=== PATIENT | female | born 1960 | race Caucasian/White ===

== ENCOUNTER 2021-04-24 09:24 | Outpatient (REF) | payer MEDICAID, SELFPAY ==
--- NOTE | ~2021-04-24 | XR_ITS ---
EXAMINATION: XR ANKLE, LEFT CLINICAL INFORMATION: Pain left ankle and left foot. COMPARISON: None TECHNIQUE: AP, lateral, and mortise views of the left ankle. FINDINGS: The ankle mortise and subtalar joints are normal. There is no visible fracture, dislocation or subluxation seen. A small calcaneal heel enthesophyte. The soft tissues are normal. XR/XR ankle LT min 3V IMPRESSION: Small calcaneal heel enthesophytes. No visible acute fracture, dislocation or subluxation seen.
== END 2021-04-24 09:25 | disposition home or self-care (01) ==
LOC: HO.XRAY 09:24
PROVIDERS: PCP Pediatrics; Visit Provider Family Medicine
DX: M25.572 Pain in left ankle and joints of left foot (principal)
CPT/HCPCS: 73610

== ENCOUNTER → 2021-05-12 10:09 | Outpatient (BNVA) | payer MEDICAID, SELFPAY | PROVIDERS: Visit Provider Physician Assistant | DX: M76.62 Achilles tendinitis, left leg (principal); M72.2 Plantar fascial fibromatosis | CPT/HCPCS: 99202 ==

== ENCOUNTER 2021-06-23 07:21 | Outpatient (REF) | payer MEDICAID, SELFPAY | END 2021-06-23 07:22 | disposition home or self-care (01) | LOC: HO.HOSX 07:21 | PROVIDERS: Visit Provider Physician Assistant | DX: Z13.89 Encounter for screening for other disorder (principal) ==

== ENCOUNTER 2021-06-24 13:00 | Outpatient (RCR) | payer MEDICAID, SELFPAY ==
--- NOTE | 2021-05-22 18:42 | MHC.PT.EP ---
[facility] [place] [facility] [place] [facility] [place] [facility] [address] [phone] F: [phone] F: [phone] F: [phone] F: [phone] Physical Therapy Plan of Care Date of Evaluation: Date of Surgery: n/a Diagnosis: Left Leg Achilles Tendinitis Assessment: PT is a 60/yo F referred to PT for eval/treat of her L leg Achilles tendinitis. S/S are consistent w/ ankle/foot dysfunction resulting in decreased tolerance and ability to perform WB activities such as standing, negotiating stairs, squatting, ambulating for duration, decreased tolerance to perform light household activities as well as doing ADLs such as putting shoes and socks and transferring in/out of the car. Functional limitation mentioned above are secondary to decreased ROM, hyperalgesia across Achilles tendon and along medial aspect/deep of GS heads, TTP of achilis tendon/planter fascia, and pain. pt is deemed appropriate to receive skilled PT to address her physical impairments to improve her functional abilities. Frequency and Duration: The patient will be seen 2x/wk for 5 wk Short Term Goals: initiate HEP w/ evidence of compliance Non pitting edema of distal AT absent. pt will report feeling baseline pain of <3/10 pain; initial 5/10 pt will be ambulate 2 blocks w/ little bit of difficulty Sewer Tapper Goals: pt will be able to ambulate 1 mile w/ little bit of difficulty; initial quite a bit of difficulty Pt will be able to negotiate flight of stairs w/ little bit of difficulty; initial quite a bit of difficulty pt will improve LEFI MDC/MCID by at least 2 increment; initial 20/80. Treatment Plan: Modalities to reduce pain, spasms and effusion. Manual therapy to restore motion and function. Therapeutic exercise to improve strength and flexibility. Neuromuscular re-education for posture and balance. Therapeutic activities to return to functional activities of daily living. Electronically signed by: Lee Olmos PT Please sign and return to therapist. Thank you for your referral.
--- NOTE | 2021-10-06 09:39 | MHC.PT.DC ---
[facility] [place] [facility] [place] [facility] [place] Office [address] 140 [facility] [phone] F: [phone] F: [phone] F: [phone] F: [phone] Physical Therapy Discharge Report Diagnosis: Left Leg Achilles Tendinitis Date of Surgery: n/a Date of Evaluation: 05/22/21 Date of Discharge: 07/21/21 Treatments to Date: 6 Cancellations to Date: No Shows to Date: Discharge Status: Improved Function Independent with HEP Patient Elected to Stop Discharge Summary: Pt remained painfree, but had increased L/S pain after exs. Pt progressed with exs with no difficulty. Balance was a challenge Electronically signed by: Lee Olmos PT. Please sign and return to therapist. Thank you for your referral.
== END 2021-10-06 09:39 | disposition home or self-care (01) ==
LOC: HO.PTCHIC 13:00
PROVIDERS: PCP Pediatrics; Visit Provider Physician Assistant
DX: M76.62 Achilles tendinitis, left leg (principal)
CPT/HCPCS: 97035; 97110; 97112; 97140; 97150; 97161

== ENCOUNTER 2021-10-22 10:35 | Outpatient (REF) | payer MEDICAID, SELFPAY ==
--- NOTE | ~2021-10-22 | MM_ITS ---
EXAMINATION: BONE DENSITOMETRY CLINICAL INDICATION: Osteoporosis. COMPARISON: Previous BD dated 03/09/2019 and baseline BD dated 02/23/2013. TECHNIQUE: Using a Nibu DXA System (software version: 13.1) manufactured by [employer], dual-energy x-ray absorptiometry was performed of the lumbar spine and left hip. The images are of good technical quality. Summary results are attached. FINDINGS: AP SPINE L1-L4: Current: BMD 0.784 g/cm2, Z-score -1.2, T-score -3.3, osteoporosis, 1.8% decrease from previous, 7.7% decrease from baseline (<5% change is not significant). Prior: BMD 0.798 g/cm2. Baseline: BMD 0.849 g/cm2. LEFT FEMUR, NECK: Current: BMD 0.668 g/cm2, Z-score -0.8, T-score -2.7, osteoporosis. Prior: BMD 0.745 g/cm2. Baseline: BMD 0.715 g/cm2. LEFT FEMUR, TOTAL: Current: BMD 0.774 g/cm2, Z-score -0.3, T-score -1.9, osteopenia, 7.9% decrease from previous, 6.5% decrease from baseline (<5% change is not significant). Prior: BMD 0.840 g/cm2. Baseline: BMD 0.828 g/cm2. IDENTIFIED RISK FACTORS: Osteoporosis, tobacco use (current smoker), height loss, history of fracture (adult), menopause. HISTORY OF FRACTURE: Elbow. MEDICATIONS: Vitamin D, bisphosphonate. MM/XR DEXA axial skeleton IMPRESSION: 1. DIAGNOSIS: Osteoporosis based on the lowest T-score value of -3.3 in the lumbar spine applying World Health Organization criteria. 2. 10-YEAR FRACTURE RISK PREDICTION, FRAX: According to the guidelines, FRAX calculation should only be performed on patients in the osteopenia bone density category. 3. Treatment Recommendations: NOF guidelines recommend consideration for treatment in postmenopausal women and men age 50 and older presenting with the following: -A hip or vertebral (clinical or morphometric) fracture. -T-score less than or equal to -2.5 at the femoral neck or spine after appropriate evaluation to exclude secondary causes. -Low bone mass at the hip or spine and a 10-year fracture probability by FRAX of greater than or equal to 3% for hip fracture or greater than or equal to 20% for major osteoporotic fracture based on the [place] adapted WHO algorithm. 4. Other Recommendations: All treatment decisions require clinical judgment and consideration of individual patient factors, including patient preferences, comorbidities, previous drug use, risk factors not captured in the FRAX model (e.g. frailty, falls, vitamin D deficiency, increased bone turnover, interval significant decline in bone density) and possible under or overestimation of fracture risk by FRAX. Additional medical evaluation for secondary cause of low bone mineral density may be appropriate. FUTURE SCAN RECOMMENDATION: People with diagnosed cases of osteoporosis or at high risk for fracture should have regular bone mineral density tests. For patients eligible for Medicare, routine testing is allowed once every 2 years. The testing frequency can be increased to one year for patients who have rapidly progressing disease, those who are receiving or discontinuing medical therapy to restore bone mass, or have additional risk factors.
--- NOTE | ~2021-10-22 | MM_ITS ---
EXAMINATION: MM SCREENING DIGITAL BREAST TOMOSYNTHESIS, BILATERAL CLINICAL INFORMATION: Screening. Asymptomatic. The lifetime risk of breast cancer based on the Tyrer-Cuzick Model is 4%. COMPARISON: Mammography: 03/09/2019, 10/29/2015, 02/23/2013 TECHNIQUE: Digital breast tomosynthesis is performed in both the craniocaudal and mediolateral oblique views along with computer-aided detection (CAD). Synthesized 2D images are generated from the tomosynthesis. FINDINGS: There are scattered areas of fibroglandular density (ACR BI-RADS breast composition Category b). Breast tissue composition borders on heterogeneously dense. There is fine fibronodular parenchymal pattern with asymmetry anterior medial right breast similar to prior studies. There is no developing density or architectural abnormality. The axilla and skin contours are unremarkable. No significant changes. MM/MM tomosynthesis screening BI IMPRESSION: No significant changes from prior exams. ASSESSMENT: BI-RADS 2: Benign RECOMMENDATION: Routine annual mammography screening. This patient's information was entered into a reminder system with a target due date for their next mammogram.
== END 2021-10-22 10:36 | disposition home or self-care (01) ==
LOC: HO.MAMMO 10:35
PROVIDERS: Visit Provider Pediatrics
DX: Z12.31 Encounter for screening mammogram for malignant neoplasm of breast (principal); Z13.820 Encounter for screening for osteoporosis; M81.0 Age-related osteoporosis without current pathological fracture; Z78.0 Asymptomatic menopausal state; Z79.899 Other long term (current) drug therapy; F17.200 Nicotine dependence, unspecified, uncomplicated
CPT/HCPCS: 77063; 77067; 77080

== ENCOUNTER 2023-05-20 15:15 | Outpatient (REF) | payer MEDICAID, SELFPAY ==
[2023-05-20 17:50] LABS: MANUAL DIFF FLAG NO
[2023-05-20 18:10] LABS: Basophils Absolute Auto 0.1 X10*3/uL (0.0-0.2); Basophils Percent Auto 0.9 % (0-2); Eosinophils Absolute Auto 0.2 X10*3/uL (0.0-0.4); Eosinophils Percent Auto 2.6 % (0-4); Hematocrit 42.4 % (37.0-47.0); Hemoglobin 14.1 g/dl (12.0-16.0); Imm Gran Abs Auto 0.02 X10*3/uL (0.00-0.03); Imm Gran Pct Auto 0.3 % (0.0-0.4); Lymphocytes Absolute Auto 2.6 X10*3/uL (1.2-4.9); Lymphocytes Percent Auto 37.1 % (20-40); Mean Corpuscular HGB Conc 33.3 g/dl (31.0-35.0); Mean Corpuscular Hemoglobin 32.6 pg (27.0-33.0); Mean Corpuscular Volume 97.9 fL (80.0-98.0); Mean Platelet Volume 8.9 fL (9.4-12.3); Monocytes Absolute Auto 0.5 X10*3/uL (0.1-1.2); Monocytes Percent Auto 7.1 % (2-11); Neutrophils Absolute Auto 3.6 x10*3/uL (2.0-8.3); Platelet Count 406 X10*3/uL (160-400); Red Blood Count 4.33 X10*6/uL (4.20-5.50); Red Cell Distribution Width 12.4 % (11.0-16.0)
[2023-05-20 18:33] LABS: Rheumatoid Factor 41.2 IU/mL (<15.0)
[2023-05-20 18:34] LABS: Alanine Aminotransferase 17 U/L (0-31); Albumin Level 4.1 g/dL (3.5-5.0); Alkaline Phosphatase 99 U/L (39-117); Anion Gap 15 (12-20); Aspartate Amino Transferase 19 U/L (5-31); Bilirubin Direct 0.2 mg/dL (0.0-0.5); Bilirubin Total 0.5 mg/dL (0.0-1.0); Blood Urea Nitrogen 7 mg/dL (9-16); Calcium 9.8 mg/dL (8.4-10.2); Carbon Dioxide 22 mmol/L (22-29); Chloride 105 mmol/L (96-108); Cholesterol 193 mg/dL (<200); Estimated Glomerular Filt Rate > 60; Glucose Fasting 82 mg/dL (60-99); HDL Cholesterol 54 mg/dL (>40); LDL Cholesterol Calculated 124 mg/dL (<100); Potassium 3.8 mmol/L (3.3-5.1); Sodium 138 mmol/L (135-145); Triglycerides 77 mg/dL (<150)
[2023-05-20 18:41] LABS: Erythrocyte Sedimentation Rate 5 MM/HR (0-20)
[2023-05-20 18:44] LABS: TSH reflex Free T4 1.07 uIU/mL (0.32-4.0); Vitamin D 25-OH Total 83.9 ng/mL (>30)
[2023-05-20 18:52] LABS: Vitamin B12 296 pg/mL (200-900)
[2023-05-23 07:44] LABS: TS Negative Control Passed; TS Panel A 2; TS Panel B 3; TS Positive Control Passed; TSpotTB Negative (Negative)
== END 2023-05-20 15:16 | disposition home or self-care (01) ==
LOC: HO.CHCLDS 15:15
PROVIDERS: Visit Provider Pediatrics
DX: Z00.00 Encounter for general adult medical examination without abnormal findings (principal)
CPT/HCPCS: 36415; 80048; 80061; 80076; 82306; 82607; 84443; 85025; 85652; 86140; 86431; 86481

== ENCOUNTER 2023-09-04 08:08 | Inpatient (IN) | payer MEDICAID, SELFPAY ==
[2023-09-04] VITALS (12 sets, daily range): BP systolic 110–134; BP diastolic 53–70; PULSE 89–113; RESP 20–30; TEMP 36.4–38.2; O2SAT 2–93; BMI 18.0; BMI 18.8
--- NOTE | ~2023-09-04 | XR_ITS ---
EXAMINATION: XR CHEST CLINICAL INFORMATION: Shortness of breath. Cough. COMPARISON: Chest x-ray September 02, 2018 TECHNIQUE: Frontal view of the chest was obtained. FINDINGS: Cardiac silhouette is normal in size. The lungs are hyperinflated. Mild diffuse coarsening of the interstitial markings, a chronic finding. There is consolidative airspace disease of the left lung base with mild patchy airspace disease bilaterally. No pleural effusion. No pneumothorax. XR/XR chest 1V IMPRESSION: Patchy bilateral airspace disease, most prominent within the left lower lobe. Findings are most suggestive of an infectious process. Follow-up imaging suggested status post treatment to ensure resolution.
--- NOTE | 2023-09-04 08:31 | ECG_ITS ---
Test Reason : FALL Blood Pressure : / mmHG Vent. Rate : 101 BPM Atrial Rate : 101 BPM P-R Int : 122 ms QRS Dur : 072 ms QT Int : 362 ms P-R-T Axes : 081 069 077 degrees QTc Int : 469 ms Sinus tachycardia Otherwise normal ECG No previous ECGs available Referred By: Verena Rainey Electronically Signed By:Chris Butterfield
--- NOTE | 2023-09-04 08:35 | PC.NURSE ---
Pt is a&ox4 coming in with sob x1 week. Reports getting worse in the last few days. Cp upon palpation. Pt has been coughing with chills and fevers on and off. increase wob noted. crackles at bases.
--- NOTE | 2023-09-04 08:38 | ED_ITS ---
HPI - SOB/Dyspnea General Chief Complaint: Dyspnea Stated Complaint: difficultly breathing, weakness Time Seen by Provider: 09/04/23 08:22 Source: patient and RN notes reviewed Mode of arrival: ambulatory Limitations: no limitations History of Present Illness HPI Narrative: This is a 63-year-old female, with a history of COPD, presenting to the emergency department with complaints of shortness of breath x1 week. Patient states that she was exposed to her son who is coughing last week, the next day she developed some shortness of breath, and a cough. She states that she has had mildly sore throat, productive cough with green-colored sputum, and right- sided chest pain. She states that the chest pain worsens with coughing. She also endorses shortness of breath. She has been using her at home nebulizers which has provided her with minimal relief. She also reports fevers, temperature at 103?, chills, body aches. She also endorses some intermittent nausea, no abdominal pain, diarrhea. MD elicited complaint: shortness of breath, cough and chest pain Pertinent past history: COPD Onset (ago): day(s) Context: recent illness Severity: moderate Exacerbating factors: nothing Relieving factors: nothing Associated symptoms: chest pain, fever, cough and sputum production Treatment prior to arrival: none Related Data Home Medications Medication Instructions Recorded Confirmed budesonide-formoterol HFA 160 2 puff inhalation BID 05/12/21 09/04/23 mcg-4.5 mcg/actuation aerosol inhaler (Symbicort) ibuprofen 400 mg tablet 400 mg PO Q8H PRN Pain 05/12/21 09/04/23 venlafaxine 37.5 mg 37.5 mg PO DAILY 05/12/21 09/04/23 capsule,extended release 24 hr albuterol sulfate 2.5 mg/3 mL 2.5 mg inhalation Q6H PRN wheezing 09/04/23 09/04/23 (0.083 %) solution for nebulization albuterol sulfate 90 mcg/actuation 1 puff inhalation Q4H PRN 09/04/23 09/04/23 aerosol inhaler (Ventolin HFA) Shortness Of Breath Or Wheezing alendronate 10 mg tablet 10 mg PO DAILY 09/04/23 09/04/23 benzonatate 100 mg capsule 100 mg PO TID PRN cough 09/04/23 09/04/23 cetirizine 10 mg tablet 10 mg DAILY 09/04/23 09/04/23 cholecalciferol (vitamin D3) 50 50 mcg BID 09/04/23 09/04/23 mcg (2,000 unit) capsule codeine 10 mg-guaifenesin 100 mg/5 5 ml PO Q6H PRN cough 09/04/23 09/04/23 mL oral liquid oseltamivir 75 mg capsule 75 mg PO BID 09/04/23 09/04/23 Allergies Allergy/AdvReac Type Severity Reaction Status Date / Time Seasonal Allergies Allergy Intermediate sneeze, Verified 05/12/21 10:24 coughing Review of Systems 2 Review of Systems: Yes all other systems are reviewed and are negative Constitutional: Constitutional: Reports as per [facility] Past Medical History Attestation statement: The following information was validated with the patient. 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 Physical Exam 2 Vital Signs: Vital Signs: Last Vital Signs Temp 97.5 F 09/04/23 14:44 Pulse 96 09/04/23 15:50 Resp 24 H 09/04/23 15:43 BP 119/63 09/04/23 14:44 Pulse Ox 93 09/04/23 15:50 O2 Del Method Oxymask 09/04/23 14:44 O2 Flow Rate 1.5 09/04/23 14:44 BMI result Body Mass Index 18.0 Const: General: cooperative, comfortable and no acute distress O rientation/consciousness: patient oriented x3 Limitations: no limitations HEENT: Head: Yes normal to inspection, Yes normocephalic and Yes atraumatic Ears: hearing grossly normal bilaterally General nose exam: Normal external nose present Face and sinus: Yes normal facial exam Mouth: Normal oral and palatal mucosa present, oropharynx normal and moist mucous membranes Throat: Yes posterior oropharynx normal Eyes: General: appearance normal, both eyes and all related structures E yelids: Yes eyelids normal Conjunctivae: conjunctivae normal Sclerae: s clerae normal Pupils: Equal, round and reactive pupils present EOM: EOMs intact bilaterally Neck: Neck: Yes normal visual inspection, Yes full ROM and Yes no lymphadenopathy Lymphatic: no lymphadenopathy noted Chest: Chest palpation & inspection: normal inspection of the chest Resp: Other: Lungs are diminished at bilateral lung bases, with crackles heard Speaking in 4-5 word sentences. Auscultation: wheezes Cardio: Rate: regular rate Rhythm: regular rhythm Heart sounds: S1 normal heart sound present and S2 normal heart sound present GI: Inspection: Yes normal to inspection Skin: General skin exam: no rashes or lesions noted Trauma: no lacerations or abrasions Wounds: no wounds Neuro: General: patient oriented x3 and moves all extremities Cranial nerves: Yes Equal, round and reactive pupils present Extrem: General: Yes normal to inspection Right upper extremity: normal to inspection Left upper extremity: normal to inspection Right lower extremity: normal to inspection Left lower extremity: normal to inspection Course Reevaluation(s) Reevaluation #1: Call from laboratory revealing patient does have 31% bands. Given patient has leukocytosis with bandemia, will administer IV fluid, and IV antibiotics. Chest x-ray, viral swabs, troponin, BMP still pending at this time. Time: 09:11 Reevaluation #2: Received a phone call from laboratory, patient with 31% bands. Patient does have leukocytosis at 11.4, lactic at 1.5. Discussed case with my attending physician, Dr. Richardson. IV fluids, Zithromax 500 mg IV, and ceftriaxone 1 g IV ordered. Chest x-ray still pending however clinical picture consistent with community-acquired pneumonia. Patient febrile at 100.8, Tylenol 1 g ordered. Time: 09:19 Reevaluation #3: Chest x-ray returns revealing patchy bilateral airspace disease most prominent within the left lower lobe. She is currently receiving IV fluids, and double coverage antibiotics. Patient tested positive for influenza A. Urine does not appear to be grossly infected. Given bandemia with evidence of pneumonia on chest x-ray, will admit to the hospitalist for further management Time: 10:33 Additional Reevaluation(s): 1035 - patient re-evaluated, increased crackles heard at bilateral lung bases, left greater than right. Given crackles, IV fluids were pause. E.d. prong protocol was initiated for respiratory therapy management. 11:48 - Pt feeling slightly improved after updraft. Will initiate transfer of care to hospitalist for further intervention. Spoke to Dr. Pacheco who accepts transfer of care. Medications Administered Generic Name Dose Route Start Last Admin Trade Name Freq PRN Reason Stop Dose Admin Albuterol/Ipratropium 3 ml 09/04/23 16:00 09/04/23 15:40 Albuterol/Iprat 2.5/0.5mg 3 Ml Ampul.Neb INHALE 3 ml RQ4H RUBY Administration Guaifenesin/Codeine Phosphate 10 ml 09/04/23 13:00 09/04/23 13:29 Guaifen/Codeine Sf 200/20/10ml 10 Ml Liquid PO 10 ml Q4H RUBY Administration Loratadine 10 mg 09/04/23 13:00 09/04/23 13:29 Loratadine 10 Mg Tablet PO 10 mg DAILY RUBY Administration Omeprazole 20 mg 09/04/23 16:30 09/04/23 15:57 Omeprazole 20 Mg Capsule. PO 20 mg BID@0630,1630 RUYB Administration Sodium Chloride 3 ml 09/04/23 16:00 09/04/23 15:57 0.9 % Sodium Chloride Flush 3 Ml Syringe IVFLUSH 3 ml QSHIFT RUBY Administration Discontinued Medications Generic Name Dose Route Start Last Admin Trade Name Freq PRN Reason Stop Dose Admin Acetaminophen 975 mg 09/04/23 10:03 09/04/23 10:18 Acetaminophen 325 Mg Tablet PO 09/04/23 10:04 975 mg ONCE ONE Administration Albuterol Sulfate 2.5 mg/ 0 mg 09/04/23 10:54 09/04/23 10:59 Albuterol/Ipratropium 3 ml INHALE 09/04/23 10:55 5 dose ONCE ONE Administration Azithromycin 500 mg/ Sodium 250 mls @ 125 mls/hr 09/04/23 09:17 09/04/23 12:38 Chloride IV 09/04/23 11:16 Infused ONCE ONE Infusion Ceftriaxone Sodium 1 gm/ 50 mls @ 100 mls/hr 09/04/23 09:17 09/04/23 10:18 Sodium Chloride IV 09/04/23 09:46 Infused ONCE ONE Infusion Sodium Chloride 1,000 mls @ 999 mls/hr 09/04/23 09:30 09/04/23 12:14 Ns IV 09/04/23 10:30 Infused .Q1H1M ONE Infusion Sodium Chloride 500 mls @ 500 mls/hr 09/04/23 10:32 09/04/23 10:46 Ns IV 09/04/23 11:31 Not Given .Q1H ONE Methylprednisolone Sodium Succinate 125 mg 09/04/23 10:39 09/04/23 10:56 Methylprednisolone Sod Succ 125 Mg/2 Ml Vial IVPUSH 09/04/23 10:40 125 mg ONCE ONE Administration Medical Decision Making Medical Decision Making MDM Narrative: This is a 63-year-old female presenting to the emergency department for evaluation of shortness of breath, productive cough with green-colored sputum x1 week. On arrival, patient tachycardic with a pulse of 105, respirations 30, oxygen saturation 92% on room air. Lungs are diminished at bilateral lung bases with coarse crackles heard. Plan: EKG, labs, chest x-ray, blood cultures, lactic acid Differential Diagnosis Differential Diagnoses: The differential diagnosis associated with the presentation includes Upper respiratory infection, pneumonia, COVID, COPD Admission/Observation Consideration of admission/observation: Escalation of care including admission/observation considered Escalation of care including admission observation was considered given shortness breath and chest pain Lab Data [facility] Lab Attestation statement: I reviewed the patient's lab results. See course, and MDM 09/04/23 08:39 09/04/23 08:39 Labs: Lab Results 09/04/23 09/04/23 09/04/23 Range/Units 08:39 08:58 09:56 WBC 11.4 H (4.8-10.8) X10*3/uL RBC 4.33 (4.20-5.50) X10*6/uL Hgb 13.9 (12.0-16.0) g/dl Hct 39.3 (37.0-47.0) % MCV 90.8 (80.0-98.0) fL MCH 32.1 (27.0-33.0) pg MCHC 35.4 H (31.0-35.0) g/dl RDW 12.6 (11.0-16.0) % Plt Count 287 D (160-400) X10*3/uL MPV 9.2 L (9.4-12.3) fL Immature Gran % (Auto) Cancelled Neut % (Auto) Cancelled Lymph % (Auto) Cancelled [place] % (Auto) Cancelled Eos % (Auto) Cancelled Baso % (Auto) Cancelled Lymph # (Auto) Cancelled [place] # (Auto) Cancelled Eos # (Auto) Cancelled Baso # (Auto) Cancelled Abs Immat Gran (auto) Cancelled Absolute Neuts (auto) Cancelled Absolute Nucleated RBC 0.000 (0.0-0.012) X10*3/uL Nucleated RBC % (auto) 0.0 (0.0-0.2) /100WBC Neutrophils % (Manual) 56 (45-73) % Band Neutrophils % 31 H (3-5) % Lymphocytes % (Manual) 9 L (20-40) % Atypical Lymphs % (Man) 1 (0-6) % Monocytes % (Manual) 3 (2-11) % Abs Neuts (Manual) 9.9 H (2.0-8.3) X10*3/uL Lymphocytes # (Manual) 1.0 L (1.2-4.9) X10*3/uL Atyp Lymphs # (Manual) 0.1 x10*3/uL Monocytes # (Manual) 0.3 (0.1-1.2) X10*3/uL Dohle Bodies PRESENT Platelet Estimate NORMAL (NORMAL) Plt Morphology Comment NORMAL RBC Morphology NORMAL Sodium 132 L (135-145) mmol/L Potassium 3.7 (3.3-5.1) mmol/L Chloride 91 L (96-108) mmol/L Carbon Dioxide 28 (22-29) mmol/L Anion Gap 17 (12-20) BUN 6 L (9-16) mg/dL Creatinine 0.64 (0.5-1.4) mg/dL Estim Creat Clear Calc 57.7 Estimated GFR > 60 Random Glucose 111 (60-115) mg/dL Lactic Acid 1.5 (0.5-2.0) mmol/L Calcium 9.2 D (8.4-10.2) mg/dL Magnesium 1.6 (1.6-2.6) mg/dL Total Bilirubin 0.7 (0.0-1.0) mg/dL Direct Bilirubin 0.4 (0.0-0.5) mg/dL AST 28 (5-31) U/L ALT 18 (0-31) U/L Alkaline Phosphatase 95 (39-117) U/L Troponin I High Sens 3.4 (<3.5-17.0) ng/L B-Natriuretic Peptide 35 (<100) pg/mL Total Protein 7.3 (6.5-8.0) g/dL Albumin 3.9 (3.5-5.0) g/dL Urine Color Dark Yellow Urine Appearance Clear Urine pH 6.5 (5.0-9.0) Ur Specific [place] 1.020 (1.005-1.025) Urine Protein 30 (1+) H (Neg-Trace) mg/dL Urine Glucose (UA) Negative (Negative) mg/dL Urine Ketones 15 (Negative) mg/dL Urine Blood Negative (Negative) Urine Nitrite Negative (Negative) Ur Leukocyte Esterase Trace H (Negative) Urine RBC 0-2 (0-2) /HPF Urine WBC 0-5 (0-5) /HPF Ur Squamous Epith Cells 3-5 (0-2) /HPF Urine Bacteria None Seen (None Seen) Hyaline Casts 0-2 (0-2) /LPF Influenza Type A (PCR) POSITIVE A (Negative) Influenza Type B (PCR) NEGATIVE (Negative) RSV RNA Qual (PCR) NEGATIVE (Negative) SARS-CoV-2 RNA (RT-PCR) NEGATIVE (Negative) Independent Interpretation I performed an independent interpretation of an: EKG Interpretation: Sinus tachycardia at a ventricular rate of 101 beats per minute, MN interval 122, QTC 469, no ST elevation or depression. Radiology Impression Discussion of test interpretation with radiology: I have reviewed the radiologist's reading. Radiologist Impression: EXAMINATION: XR CHEST CLINICAL INFORMATION: Shortness of breath. Cough. COMPARISON: Chest x-ray September 02, 2018 TECHNIQUE: Frontal view of the chest was obtained. FINDINGS: Cardiac silhouette is normal in size. The lungs are hyperinflated. Mild diffuse coarsening of the interstitial markings, a chronic finding. There is consolidative airspace disease of the left lung base with mild patchy airspace disease bilaterally. No pleural effusion. No pneumothorax. XR/XR chest 1V IMPRESSION: Patchy bilateral airspace disease, most prominent within the left lower lobe. Findings are most suggestive of an infectious process. Follow-up imaging suggested status post treatment to ensure resolution. Dictated By: Papi Womack MD External Record Review External record reviewed: Inpatient record, Office record, Outpatient record, Prior outpatient labs, Prior outpatient radiology, Primary care record and Outside ED record Critical Care Time Critical Care Time Critical Care Time: Yes Total Critical Care Time: 45 Attestation: I have personally provided critical care time exclusive of time spent on separately billable procedures. Time includes review of lab data, radiology results, discussion with consultants, and monitoring for potential decompensation. Intervention performed as documented. Discharge Plan Discharge Clinical Impression: Community acquired pneumonia, Influenza A, Bandemia Patient Disposition: Admitted As Inpatient Interventions: Admission Worksheet (ED) Last Done: 09/04/23 13:35 Discharge Date/Time: 09/04/23 14:33
[2023-09-04 08:47] LABS: Hematocrit 39.3 % (37.0-47.0); Hemoglobin 13.9 g/dl (12.0-16.0); Mean Corpuscular HGB Conc 35.4 g/dl (31.0-35.0); Mean Corpuscular Hemoglobin 32.1 pg (27.0-33.0); Mean Corpuscular Volume 90.8 fL (80.0-98.0); Mean Platelet Volume 9.2 fL (9.4-12.3); Platelet Count 287 X10*3/uL (160-400); Red Blood Count 4.33 X10*6/uL (4.20-5.50); Red Cell Distribution Width 12.6 % (11.0-16.0)
[2023-09-04 08:50] LABS: WBC ABN SCTR FOR CBC 1; White Blood Count 11.4 X10*3/uL (4.8-10.8)
[2023-09-04 09:05] LABS: Lactic Acid 1.5 mmol/L (0.5-2.0)
[2023-09-04 09:10] LABS: Alanine Aminotransferase 18 U/L (0-31); Albumin Level 3.9 g/dL (3.5-5.0); Alkaline Phosphatase 95 U/L (39-117); Anion Gap 17 (12-20); Aspartate Amino Transferase 28 U/L (5-31); Bilirubin Direct 0.4 mg/dL (0.0-0.5); Bilirubin Total 0.7 mg/dL (0.0-1.0); Blood Urea Nitrogen 6 mg/dL (9-16); Calcium 9.2 mg/dL (8.4-10.2); Carbon Dioxide 28 mmol/L (22-29); Chloride 91 mmol/L (96-108); Creatinine Clr Calc Pharmacy 57.7; Estimated Glomerular Filt Rate > 60; Glucose Random 111 mg/dL (60-115); Magnesium 1.6 mg/dL (1.6-2.6); Neutrophils Percent Manual 56 % (45-73); Potassium 3.7 mmol/L (3.3-5.1); Sodium 132 mmol/L (135-145); Total Protein 7.3 g/dL (6.5-8.0)
[2023-09-04 09:13] LABS: Atypical Lymph Absolute Manual 0.1 x10*3/uL; Atypical Lymphs Percent Manual 1 % (0-6); Band Neutrophils Percent 31 % (3-5); Lymphocytes Percent Manual 9 % (20-40); Monocytes Absolute Manual 0.3 X10*3/uL (0.1-1.2); Monocytes Percent Manual 3 % (2-11); Neutrophils Absolute Manual 9.9 X10*3/uL (2.0-8.3)
[2023-09-04 09:15] LABS: Dohle Bodies PRESENT; Platelet Estimate NORMAL (NORMAL); Platelet Morphology Comment NORMAL; RBC Morphology NORMAL
[2023-09-04 09:19] LABS: Troponin-I High Sensitivity 3.4 ng/L (<3.5-17.0)
[2023-09-04 09:24] LABS: Influenza A PCR POSITIVE (Negative); Influenza B PCR NEGATIVE (Negative); Resp Syncy Virus RNA Qual PCR NEGATIVE (Negative); SARS COV2 PCR INHOUSE NEGATIVE (Negative)
[2023-09-04 09:31] LABS: B Type Natriuretic Peptide 35 pg/mL (<100)
[2023-09-04] MEDS: cefTRIAXone sodium 1 GM in 0.9 % Sodium Chloride 50 ML IV (09:31)
[2023-09-04] MEDS: 0.9 % Sodium Chloride 1,000 ML 999 ML IV (09:33)
[2023-09-04] MEDS: Azithromycin 500 MG in 0.9 % Sodium Chloride 250 ML 125 MG IV (10:17)
[2023-09-04] MEDS: Acetaminophen 325 MG TABLET 975 MG PO (10:18)
[2023-09-04 10:21] LABS: Appearance Urine Clear; Color Urine Dark Yellow; Glucose Urine UA Negative (Negative); Leukocyte Esterase Urine Trace (Negative); Nitrite Urine Negative (Negative); PH 6.5 (5.0-9.0); UMIC TRIGGER UACC YES; Urine Blood Negative (Negative); Urine Ketones 15 mg/dL (Negative); Urine Protein 30 (1+) mg/dL (Neg-Trace)
[2023-09-04 10:26] LABS: Bacteria Urine None Seen (None Seen); Hyaline Casts Urine 0-2 /LPF (0-2); RBC Urine 0-2 /HPF (0-2); WBC Urine 0-5 /HPF (0-5)
--- NOTE | 2023-09-04 10:46 | PC.NURSE ---
Respiratory called for breathing treatment.
--- NOTE | 2023-09-04 10:46 | PC.NURSE ---
Fluids stopped at this time.
[2023-09-04] MEDS: methylPREDNISolone Sod Succ 125 MG/2 ML VIAL IVPUSH (10:56)
[2023-09-04] MEDS: Albuterol Sulfate 2.5 MG, Albuterol/Iprat 2.5/0.5MG 3 ML 3 ML INHALE (10:59)
--- NOTE | 2023-09-04 11:44 | PC.NURSE ---
Pt changed to Oxymask, difficulty tolerating nasal cannula in nares. Increased productive cough since updraft but decreased work of breathing. Continues to have SOB with any exertion. Crackles heard to B/L bases. Daughter at bedside.
--- NOTE | 2023-09-04 12:00 | PC.NURSE ---
Inpatient DR rivera at bedside assessing patient.
--- NOTE | 2023-09-04 12:52 | PM.IMHP ---
History of Present Illness Date of Service: 09/04/23 Attending physician on admission: Brigitte Pacheco Chief Complaint: sob ,cough ,myalgias 63 y/o F with history of COPD not on home oxygen, anxiety, osteopenia, 50 pack year somking hx ( active smoker) : came to hospital for sob ,productive cough with yellowish sputum ,pleurtic pain with coughing,fever ( almost 1week) which is not getting better -she went to [facility] but not stayed due to long wait.her son has flu too.She has been using her at home nebulizers which has provided her with minimal relief. She also reports fevers, temperature at 103?, chills, body aches. She also endorses some intermittent nausea. In ED she has tachycardia, tachypnea, fever(100.8*f) ,leucocytosis 11.2,sodium 132 ,postive for influenza A ,CXR-Patchy bilateral airspace disease, most prominent within the left lower lobe. ekg -nsr. recieved solumedrol,neb,azithro+ceftriaxone -minimal response . Review of Systems Review of Systems: Yes all other systems are reviewed and are negative [facility] Medical History Purulent drainage through ear tube Pertinent family history: son-has influenza. 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 Meds Allergies Allergy/AdvReac Type Severity Reaction Status Date / Time Seasonal Allergies Allergy Intermediate sneeze, Verified 05/12/21 10:24 coughing Active Medications: Current Medications Acetaminophen (Acetaminophen 325 Mg Tablet) 650 mg PO Q6H PRN PRN Reason: Pain, Mild (Pain Scale 1-3) Enoxaparin Sodium (Enoxaparin Sodium 40 Mg/0.4 Ml Syringe) 40 mg SUBCUT DAILY [facility] Guaifenesin/Codeine Phosphate (Guaifen/Codeine Sf 200/20/10ml 10 Ml Liquid) 10 ml PO Q4H [facility] Ceftriaxone Sodium 1 gm/ (Sodium Chloride) 50 mls @ 100 mls/hr IV DAILY [facility] Azithromycin 500 mg/ Sodium (Chloride) 250 mls @ 125 mls/hr IV DAILY [facility] Loratadine (Loratadine 10 Mg Tablet) 10 mg PO DAILY [facility] Methylprednisolone Sodium Succinate (Methylprednisolone Sod Succ 40 Mg/Ml Vial) 40 mg IVPUSH BID [facility] Omeprazole (Omeprazole 20 Mg Capsule.Dr) 20 mg PO BID@0630,1630 [facility] Oseltamivir Phosphate (Oseltamivir Phosphate 75 Mg Capsule) 75 mg PO BID [facility] Sodium Chloride (0.9 % Sodium Chloride Flush 3 Ml Syringe) 3 ml IVFLUSH QSHIFT [facility] Home Medications Medication Instructions Recorded Confirmed Last Taken Type budesonide-formoterol HFA 160 2 puff inhalation BID 05/12/21 Unknown History mcg-4.5 mcg/actuation aerosol inhaler (Symbicort) ibuprofen 400 mg tablet 400 mg PO Q8H 05/12/21 Unknown History venlafaxine 37.5 mg 37.5 mg PO DAILY 05/12/21 Unknown History capsule,extended release 24 hr albuterol sulfate 2.5 mg/3 mL 2.5 mg inhalation Q6H PRN wheezing 09/04/23 Unknown History (0.083 %) solution for nebulization albuterol sulfate 90 mcg/actuation 1 puff inhalation Q4H PRN 09/04/23 Unknown History aerosol inhaler (Ventolin HFA) Shortness Of Breath Or Wheezing alendronate 10 mg tablet 10 mg PO QAM 09/04/23 Unknown History benzonatate 100 mg capsule 100 mg PO TID PRN cough 09/04/23 Unknown History cetirizine 10 mg tablet 10 mg DAILY 09/04/23 Unknown History cholecalciferol (vitamin D3) 50 50 mcg BID 09/04/23 Unknown History mcg (2,000 unit) capsule codeine 10 mg-guaifenesin 100 mg/5 5 ml PO Q6H PRN cough 09/04/23 Unknown History mL oral liquid oseltamivir 75 mg capsule 75 mg PO BID 09/04/23 Unknown History Physical Exam Vital Signs and Narrative: Vital Signs: Last Vital Signs Temp 99.5 F 09/04/23 12:00 Pulse 110 H 09/04/23 12:00 Resp 24 H 09/04/23 12:00 BP 134/53 L 09/04/23 12:00 Pulse Ox 92 09/04/23 12:00 O2 Del Method Simple Mask 09/04/23 12:00 O2 Flow Rate 2 09/04/23 12:00 BMI result Body Mass Index 18.0 Appearance: Alert.? Oriented X3.?sob with minimun excersion ,talking in small sentences. Eyes: Pupils equal, round and reactive to light.? Sclera nonicteric.? ENT: Pharynx normal.? Moist mucous membranes. cvs: rrr, [id number] , no murmur res: air entry diminshed at bases ,few faint wheezing b/l. abd: no rebound or guarding ,nt, bs present. ext pulses present , no cyanosis . neuro: axo3 , nonfocal. Results Labs 09/04/23 08:39 09/04/23 08:39 Labs: Laboratory Results - last 24 hr 09/04/23 09/04/23 09/04/23 08:39 08:58 09:56 MCV 90.8 MCH 32.1 MCHC 35.4 H RDW 12.6 Plt Count 287 D MPV 9.2 L Immature Gran % (Auto) Cancelled Neut % (Auto) Cancelled Lymph % (Auto) Cancelled [place] % (Auto) Cancelled Eos % (Auto) Cancelled Baso % (Auto) Cancelled Lymph # (Auto) Cancelled [place] # (Auto) Cancelled Eos # (Auto) Cancelled Baso # (Auto) Cancelled Abs Immat Gran (auto) Cancelled Absolute Neuts (auto) Cancelled Absolute Nucleated RBC 0.000 Nucleated RBC % (auto) 0.0 Neutrophils % (Manual) 56 Band Neutrophils % 31 H Lymphocytes % (Manual) 9 L Atypical Lymphs % (Man) 1 Monocytes % (Manual) 3 Abs Neuts (Manual) 9.9 H Lymphocytes # (Manual) 1.0 L Atyp Lymphs # (Manual) 0.1 Monocytes # (Manual) 0.3 Dohle Bodies PRESENT Platelet Estimate NORMAL Plt Morphology Comment NORMAL RBC Morphology NORMAL Anion Gap 17 Estim Creat Clear Calc 57.7 Estimated GFR > 60 Random Glucose 111 Lactic Acid 1.5 Calcium 9.2 D Magnesium 1.6 Total Bilirubin 0.7 Direct Bilirubin 0.4 AST 28 ALT 18 Alkaline Phosphatase 95 B-Natriuretic Peptide 35 Total Protein 7.3 Albumin 3.9 Urine Color Dark Yellow Urine Appearance Clear Urine pH 6.5 Ur Specific [place] 1.020 Urine Protein 30 (1+) H Urine Glucose (UA) Negative Urine Ketones 15 Urine Blood Negative Urine Nitrite Negative Ur Leukocyte Esterase Trace H Urine RBC 0-2 Urine WBC 0-5 Ur Squamous Epith Cells 3-5 Urine Bacteria None Seen Hyaline Casts 0-2 Influenza Type A (PCR) POSITIVE A Influenza Type B (PCR) NEGATIVE RSV RNA Qual (PCR) NEGATIVE SARS-CoV-2 RNA (RT-PCR) NEGATIVE Imaging Radiologist's Impressions: Impressions Chest X-Ray 09/04/23 08:30 IMPRESSION: Patchy bilateral airspace disease, most prominent within the left lower lobe. Findings are most suggestive of an infectious process. Follow-up imaging suggested status post treatment to ensure resolution. Assessment and Plan (1) Bandemia: Status: Acute (2) Influenza A: Status: Acute (3) Community acquired pneumonia: Status: Acute Plan 63 y/o F with history of COPD not on home oxygen, anxiety, osteopenia, 50 pack year somking hx ( active smoker)- came with pneumonia ,inflenza A. sepsis sec to pneumonia ,alsoinflenza A, also has mild COPD exacerbation. Tachycardia tachypnea, bandemia Lactic acid normal, blood cultures sent Continue nebs, steroids, IV antibiotics ceftriaxone and azithromycin(09/03/23) ,cough syrup,tamiflu. active smoker: added nicotein patch. Anxiety- will start home meds once med reconcilliation completes. dvt prophylax: s/c lovenox. Ongoing hospitalization need: Due to sepsis and pneumonia in the setting of influenza a as well as COPD exacerbation patient will need IV antibiotics, nebs, steroids , respiratory monitoring for any decompensation. Patient will benefit from2 midnight stays. Above management discussed the patient and her daughter at the bedside in detail length they understand and in agreement with above plan, time spent 70 minute. Quality Stroke Does the patient have a stroke diagnosis?: No VTE Prior VTE?: No VTE Risk Level:: Medical - moderate - high VTE Device Contraindication: N/A - Device Ordered VTE Drug Contraindication: N/A - Med Ordered
[2023-09-04] MEDS: Loratadine 10 MG TABLET PO (13:29)
[2023-09-04] MEDS: guaiFEN/Codeine SF 200/20/10ML 10 ML LIQUID PO ×3 (13:29→20:56)
--- NOTE | 2023-09-04 13:31 | PHA.MEDREC ---
Pharmacy Consult ? Medication Reconciliation Pharmacy has completed the medication reconciliation.
[2023-09-04] MEDS: Albuterol/Iprat 2.5/0.5MG 3 ML AMPUL.NEB INHALE ×2 (15:40→19:48)
[2023-09-04] MEDS: Omeprazole 20 MG CAPSULE.DR PO (15:57)
[2023-09-04] MEDS: 0.9 % Sodium Chloride Flush 3 ML SYRINGE IVFLUSH ×2 (15:57→20:56)
[2023-09-04] MEDS: Oseltamivir Phosphate 75 MG CAPSULE PO (20:56)
[2023-09-04] MEDS: Acetaminophen 325 MG TABLET 650 MG PO (20:57)
[2023-09-04] MEDS: methylPREDNISolone Sod Succ 40 MG/ML VIAL IVPUSH (20:57)
[2023-09-05 03:53] VITALS: BP 111/63; PULSE 84; RESP 22; TEMP 36.2; O2SAT 90
[2023-09-05 05:38] LABS: Hematocrit 32.5 % (37.0-47.0); Hemoglobin 11.2 g/dl (12.0-16.0); Mean Corpuscular HGB Conc 34.5 g/dl (31.0-35.0); Mean Corpuscular Hemoglobin 31.6 pg (27.0-33.0); Mean Corpuscular Volume 91.8 fL (80.0-98.0); Mean Platelet Volume 9.5 fL (9.4-12.3); Platelet Count 279 X10*3/uL (160-400); Red Blood Count 3.54 X10*6/uL (4.20-5.50); Red Cell Distribution Width 12.8 % (11.0-16.0)
[2023-09-05] MEDS: Omeprazole 20 MG CAPSULE.DR PO ×2 (05:38→16:15)
[2023-09-05 05:58] LABS: Anion Gap 14 (12-20); Blood Urea Nitrogen 11 mg/dL (9-16); Calcium 8.4 mg/dL (8.4-10.2); Carbon Dioxide 28 mmol/L (22-29); Chloride 96 mmol/L (96-108); Creatinine Clr Calc Pharmacy 58.6; Estimated Glomerular Filt Rate > 60; Glucose Random 167 mg/dL (60-115); Potassium 3.8 mmol/L (3.3-5.1); Sodium 134 mmol/L (135-145)
[2023-09-05 06:16] LABS: Atypical Lymph Absolute Manual 0.4 x10*3/uL; Atypical Lymphs Percent Manual 4 % (0-6); Band Neutrophils Percent 9 % (3-5); Lymphocytes Absolute Manual 0.7 X10*3/uL (1.2-4.9); Lymphocytes Percent Manual 8 % (20-40); Monocytes Absolute Manual 0.2 X10*3/uL (0.1-1.2); Monocytes Percent Manual 2 % (2-11); Neutrophils Absolute Manual 7.7 X10*3/uL (2.0-8.3); Neutrophils Percent Manual 77 % (45-73); Platelet Estimate NORMAL (NORMAL); Platelet Morphology Comment NORMAL; RBC Morphology NORMAL
[2023-09-05 07:13] VITALS: BP 111/61; PULSE 80; RESP 18; TEMP 36.2; O2SAT 90
[2023-09-05] MEDS: Albuterol/Iprat 2.5/0.5MG 3 ML AMPUL.NEB INHALE ×2 (08:01→19:47)
[2023-09-05 08:03] VITALS: PULSE 83; RESP 18; O2SAT 88
[2023-09-05] MEDS: Loratadine 10 MG TABLET PO (08:09)
[2023-09-05] MEDS: methylPREDNISolone Sod Succ 40 MG/ML VIAL IVPUSH ×2 (08:09→20:08)
[2023-09-05] MEDS: Oseltamivir Phosphate 75 MG CAPSULE PO (08:09)
[2023-09-05] MEDS: guaiFEN/Codeine SF 200/20/10ML 10 ML LIQUID PO ×4 (08:11→20:07)
[2023-09-05] MEDS: vancomycin HCL 1,000 MG in 0.9 % Sodium Chloride 250 ML 270 MG IV (08:12)
[2023-09-05] MEDS: 0.9 % Sodium Chloride Flush 3 ML SYRINGE IVFLUSH ×3 (08:12→20:08)
--- NOTE | 2023-09-05 09:42 | PHA.PROG ---
Admission Date/Time: September 04, 2023 12:44 Indication: BACT Weight in k.7 kg Serum Creatinine - Last 168 Hours 09/04/23 09/05/23 08:39 05:26 Creatinine 0.64 0.66 Estimated CrCl and GFR - Last 168 Hours 09/04/23 09/05/23 08:39 05:26 Estim Creat Clear Calc 57.7 58.6 Estimated GFR > 60 > 60 Vancomycin Loading Dose: 1000 Current Vancomycin Dosing Regimen: [id number] Vancomycin Monitoring using AUC goal of 400 - 600 range with trough as surrogate marker: 576 Date and Time for next Vancomycin Level to be drawn: 09/06 @ 1999 Pharmacist Comments on Vancomycin Plan: Vancomycin dosing will take advantage of [employer] as a clinical decision support tool that uses Bayesian modeling to calculate individual patient's pharmacokinetic parameters and forecast the patient's drug concentration time course with the target goal AUC 24 range of 400 - 600 mg/L/hr.
--- NOTE | 2023-09-05 09:51 | HO.PM.IMPN ---
Subjective Subjective Date of Service: 09/05/23 Interval History: copd excerebation ,influenza A Review of Systems SOB seems similar ,has aggressive productive cough,no fever Physical Exam Vital Signs: Vital Signs: Last Vital Signs Temp 97.2 F 09/05/23 07:13 Pulse 83 09/05/23 08:03 Resp 18 09/05/23 08:03 BP 111/61 09/05/23 07:13 Pulse Ox 90 L 09/05/23 07:13 O2 Del Method Room Air 09/05/23 07:13 O2 Flow Rate 1.5 09/04/23 14:44 BMI result Body Mass Index 18.8 Appearance: Alert.? Oriented X3.?sob with minimun excersion ,talking in small sentences. cvs: rrr, [id number] . res: air entry diminshed at bases ,few faint wheezing b/l. abd: no rebound or guarding ,nt, bs present. ext pulses present , no cyanosis . neuro: axo3 , nonfocal. Objective Data Active Medications Acetaminophen (Acetaminophen 325 Mg Tablet) 650 mg PO Q6H PRN PRN Reason: Pain, Mild (Pain Scale 1-3) Last Admin: 09/04/23 20:57 Dose: 650 mg Documented By: FLAKITO Albuterol/Ipratropium (Albuterol/Iprat 2.5/0.5mg 3 Ml Ampul.Neb) 3 ml INHALE Q3H PRN PRN Reason: sob Albuterol/Ipratropium (Albuterol/Iprat 2.5/0.5mg 3 Ml Ampul.Neb) 3 ml INHALE RQ4H [facility] Last Admin: 09/05/23 08:01 Dose: 3 ml Documented By: GUERRERO Benzonatate (Benzonatate 100 Mg Capsule) 100 mg PO TID PRN PRN Reason: cough Enoxaparin Sodium (Enoxaparin Sodium 40 Mg/0.4 Ml Syringe) 40 mg SUBCUT DAILY [facility] Last Admin: 09/05/23 08:10 Dose: Not Given Documented By: NATALIE Non-Admin Reason: Patient Refused Fluticasone/Vilanterol (Fluticasone/Vilanterol 200/25 Blst.W.Dev) 1 puff INHALE RDAILY [facility] Guaifenesin/Codeine Phosphate (Guaifen/Codeine Sf 200/20/10ml 10 Ml Liquid) 10 ml PO Q4H [facility] Last Admin: 09/05/23 08:11 Dose: 10 ml Documented By: NATALIE Azithromycin 500 mg/ Sodium (Chloride) 250 mls @ 125 mls/hr IV DAILY [facility] Vancomycin HCl 750 mg/ Sodium (Chloride) 265 mls @ 265 mls/hr IV Q12H [facility] Loratadine (Loratadine 10 Mg Tablet) 10 mg PO DAILY [facility] Last Admin: 09/05/23 08:09 Dose: 10 mg Documented By: NATALIE Methylprednisolone Sodium Succinate (Methylprednisolone Sod Succ 40 Mg/Ml Vial) 40 mg IVPUSH BID [facility] Last Admin: 09/05/23 08:09 Dose: 40 mg Documented By: NATALIE Omeprazole (Omeprazole 20 Mg Capsule.Dr) 20 mg PO BID@0630,1630 [facility] Last Admin: 09/05/23 05:38 Dose: 20 mg Documented By: NANCY Oseltamivir Phosphate (Oseltamivir Phosphate 75 Mg Capsule) 75 mg PO BID [facility] Stop: 09/05/23 20:59 Last Admin: 09/05/23 08:09 Dose: 75 mg Documented By: NATALIE Pharmacy Consult (Consult Rx Vancomycin Dosing) 1 each MISCELLANE DAILY PRN PRN Reason: Consult order Sodium Chloride (0.9 % Sodium Chloride Flush 3 Ml Syringe) 3 ml IVFLUSH QSHIFT [facility] Last Admin: 09/05/23 08:12 Dose: 3 ml Documented By: NATALIE Venlafaxine HCl (Venlafaxine Hcl Er 37.5 Mg Cap.Er.24h) 37.5 mg PO DAILY [facility] Vitamin D (Cholecalciferol (Vitamin D3) 25 Mcg Tablet) 50 mcg PO BID [facility] Labs 09/05/23 05:26 09/05/23 05:26 Labs: Laboratory Results - last 24 hr 09/04/23 09/05/23 09:56 05:26 MCV 91.8 MCH 31.6 MCHC 34.5 RDW 12.8 Plt Count 279 MPV 9.5 Immature Gran % (Auto) Cancelled Neut % (Auto) Cancelled Lymph % (Auto) Cancelled [place] % (Auto) Cancelled Eos % (Auto) Cancelled Baso % (Auto) Cancelled Lymph # (Auto) Cancelled [place] # (Auto) Cancelled Eos # (Auto) Cancelled Baso # (Auto) Cancelled Abs Immat Gran (auto) Cancelled Absolute Neuts (auto) Cancelled Absolute Nucleated RBC 0.000 Nucleated RBC % (auto) 0.0 Neutrophils % (Manual) 77 H Band Neutrophils % 9 H Lymphocytes % (Manual) 8 L Atypical Lymphs % (Man) 4 Monocytes % (Manual) 2 Abs Neuts (Manual) 7.7 Lymphocytes # (Manual) 0.7 L Atyp Lymphs # (Manual) 0.4 Monocytes # (Manual) 0.2 Platelet Estimate NORMAL Plt Morphology Comment NORMAL RBC Morphology NORMAL Anion Gap 14 Estim Creat Clear Calc 58.6 Estimated GFR > 60 Random Glucose 167 H Calcium 8.4 D Urine Color Dark Yellow Urine Appearance Clear Urine pH 6.5 Ur Specific [place] 1.020 Urine Protein 30 (1+) H Urine Glucose (UA) Negative Urine Ketones 15 Urine Blood Negative Urine Nitrite Negative Ur Leukocyte Esterase Trace H Urine RBC 0-2 Urine WBC 0-5 Ur Squamous Epith Cells 3-5 Urine Bacteria None Seen Hyaline Casts 0-2 Microbiology Microbiology Results: Microbiology 09/04/23 01:00 Blood Culture - Preliminary Blood - Venous Prelim: GPC Gram Stain only 09/04/23 08:39 Blood Culture - Preliminary Blood - Venous Prelim: GPC Gram Stain only Assessment and Plan (1) Bandemia: Status: Acute (2) Influenza A: Status: Acute (3) Community acquired pneumonia: Status: Acute Plan 63 y/o F with history of COPD not on home oxygen, anxiety, osteopenia, 50 pack year somking hx ( active smoker)- came with pneumonia ,inflenza A. sepsis sec to pneumonia ,alsoinflenza A, also has mild COPD exacerbation. curb65 -points 2-3 Tachycardia tachypnea, bandemia Lactic acid normal, blood cultures sent Continue nebs, steroids, IV antibiotics ceftriaxone and azithromycin(09/03/23) ,cough syrup,tamiflu. active smoker: added nicotein patch. Anxiety- will start home meds once med reconcilliation completes. dvt prophylax: s/c lovenox. Ongoing hospitalization need: Due to sepsis and pneumonia in the setting of influenza a as well as COPD exacerbation patient will need IV antibiotics, nebs, steroids , respiratory monitoring for any decompensation. Quality Stroke Does the patient have a stroke diagnosis?: No VTE Prior VTE?: No VTE Risk Level:: Medical - moderate - high VTE Device Contraindication: N/A - Device Ordered VTE Drug Contraindication: N/A - Med Ordered
[2023-09-05] MEDS: Cholecalciferol (Vitamin D3) 25 MCG TABLET 50 MCG PO ×2 (10:13→20:08)
[2023-09-05] MEDS: Venlafaxine HCl ER 37.5 MG CAP.ER.24H PO (10:14)
[2023-09-05] MEDS: Azithromycin 500 MG in 0.9 % Sodium Chloride 250 ML 125 MG IV (10:14)
[2023-09-05] MEDS: Acetaminophen 325 MG TABLET 650 MG PO (12:36)
[2023-09-05 15:28] VITALS: BP 131/60; PULSE 84; RESP 18; TEMP 36.4; O2SAT 93
--- NOTE | 2023-09-05 16:20 | MHC.CM.PN ---
PT REPORTS SHE LIVES AT HOME WITH HER ADULT SON AND IS INDEPENDENT WITH CARE SHE DENIES USING ANY HOME SERVICES AND USES ONLY A NEBULIZER FOR DME PT SAYS SHE HAS A HCP ALREADY NAMING HER DAUGHTER HER AGENT, COPY REQUESTED PCP: ISABELLA JACOB DCP: HOME NO SERVICES VIA FAMILY TRANSPORT
[2023-09-05 19:48] VITALS: PULSE 88; RESP 18; O2SAT 93
[2023-09-05 19:57] VITALS: BP 134/67; PULSE 89; RESP 17; TEMP 36.2; O2SAT 95
[2023-09-05] MEDS: vancomycin HCL 750 MG in 0.9 % Sodium Chloride 250 ML 265 MG IV (20:08)
[2023-09-06] VITALS (9 sets, daily range): BP systolic 120–134; BP diastolic 61–72; PULSE 63–96; RESP 14–21; TEMP 36.1–36.4; O2SAT 90–95; BMI 18.8
[2023-09-06] MEDS: Albuterol/Iprat 2.5/0.5MG 3 ML AMPUL.NEB INHALE ×4 (04:12→20:00)
[2023-09-06] MEDS: Omeprazole 20 MG CAPSULE.DR PO ×2 (06:11→16:09)
[2023-09-06] MEDS: guaiFEN/Codeine SF 200/20/10ML 10 ML LIQUID PO ×5 (06:11→20:03)
[2023-09-06] MEDS: vancomycin HCL 750 MG in 0.9 % Sodium Chloride 250 ML 265 MG IV (08:04)
[2023-09-06] MEDS: 0.9 % Sodium Chloride Flush 3 ML SYRINGE IVFLUSH ×3 (08:04→20:04)
[2023-09-06] MEDS: Azithromycin 500 MG in 0.9 % Sodium Chloride 250 ML 125 MG IV (09:17)
[2023-09-06] MEDS: Loratadine 10 MG TABLET PO (09:17)
[2023-09-06] MEDS: Cholecalciferol (Vitamin D3) 25 MCG TABLET 50 MCG PO ×2 (09:17→20:03)
[2023-09-06] MEDS: Venlafaxine HCl ER 37.5 MG CAP.ER.24H PO (09:17)
[2023-09-06] MEDS: methylPREDNISolone Sod Succ 40 MG/ML VIAL IVPUSH ×2 (09:17→20:03)
[2023-09-06 09:32] LABS: Creatinine Clr Calc Pharmacy 70.3; Estimated Glomerular Filt Rate > 60
[2023-09-06] MEDS: polyethylene glycoL 3350 17 GM POWD.PACK PO (11:06)
[2023-09-06] MEDS: Docusate Sodium 100 MG CAPSULE PO (11:06)
--- NOTE | 2023-09-06 11:07 | MHC.CLN ---
NUTRITION DIET=REGULAR. TAKES ENSURE AT HOME. ADDING ENSURE MAX PROTEIN BID (VANILLA). PROVIDES 300 KCALS, 60 G PROTEIN. UNDERWEIGHT WITH BMI=18.8. REPORTS THAT WEIGHT HAS BEEN STABLE. CONTINUE REGULAR DIET WITH ENSURE MAX BID. PO 75-100%. FOLLOW FOR INTAKE.
[2023-09-06] MEDS: Fluticasone/Vilanterol 200/25 BLST.W.DEV 1 PUFF INHALE (11:38)
--- NOTE | 2023-09-06 11:45 | MHC.CM.PN ---
per rounds pt is still sob no anticapated dc date at this time plan remains home
--- NOTE | 2023-09-06 13:09 | P.PNIM_ITS ---
Subjective Subjective Date of Service: 09/06/23 Interval History: copd excerebation ,influenza A Review of Systems SOB seems similar ,has aggressive productive cough,no fever Physical Exam 2 Vital Signs: Vital Signs: Last Vital Signs Temp 96.9 F 09/06/23 08:00 Pulse 91 09/06/23 11:40 Resp 17 09/06/23 12:22 BP 133/72 09/06/23 08:00 Pulse Ox 90 L 09/06/23 12:22 O2 Del Method Room Air 09/06/23 12:22 O2 Flow Rate 1.5 09/04/23 14:44 BMI result Body Mass Index 18.8 Appearance: Alert.? Oriented X3.?sob with minimun excersion ,talking in small sentences. cvs: rrr, [id number] . res: air entry diminshed at bases ,few faint wheezing b/l. abd: no rebound or guarding ,nt, bs present. ext pulses present , no cyanosis . neuro: axo3 , nonfocal. Objective Data Active Medications Acetaminophen (Acetaminophen 325 Mg Tablet) 650 mg PO Q6H PRN PRN Reason: Pain, Mild (Pain Scale 1-3) Last Admin: 09/05/23 12:36 Dose: 650 mg Documented By: NATALIE Albuterol/Ipratropium (Albuterol/Iprat 2.5/0.5mg 3 Ml Ampul.Neb) 3 ml INHALE Q3H PRN PRN Reason: sob Albuterol/Ipratropium (Albuterol/Iprat 2.5/0.5mg 3 Ml Ampul.Neb) 3 ml INHALE RQ4H [facility] Last Admin: 09/06/23 11:38 Dose: 3 ml Documented By: ROSALIO Benzonatate (Benzonatate 100 Mg Capsule) 100 mg PO TID PRN PRN Reason: cough Enoxaparin Sodium (Enoxaparin Sodium 40 Mg/0.4 Ml Syringe) 40 mg SUBCUT DAILY [facility] Last Admin: 09/06/23 09:16 Dose: Not Given Documented By: AFSHAN Non-Admin Reason: Patient Refused Fluticasone/Vilanterol (Fluticasone/Vilanterol 200/25 Blst.W.Dev) 1 puff INHALE RDAILY [facility] Last Admin: 09/06/23 11:38 Dose: 1 puff Documented By: ROSALIO Guaifenesin/Codeine Phosphate (Guaifen/Codeine Sf 200/20/10ml 10 Ml Liquid) 10 ml PO Q4H [facility] Last Admin: 09/06/23 12:19 Dose: 10 ml Documented By: AFSHAN Azithromycin 500 mg/ Sodium (Chloride) 250 mls @ 125 mls/hr IV DAILY [facility] Last Infusion: 09/06/23 11:33 Dose: Infused Documented By: AFSHAN Vancomycin HCl 750 mg/ Sodium (Chloride) 265 mls @ 265 mls/hr IV Q12H [facility] Last Infusion: 09/06/23 09:27 Dose: Infused Documented By: AFSHAN Loratadine (Loratadine 10 Mg Tablet) 10 mg PO DAILY [facility] Last Admin: 09/06/23 09:17 Dose: 10 mg Documented By: AFSHAN Methylprednisolone Sodium Succinate (Methylprednisolone Sod Succ 40 Mg/Ml Vial) 40 mg IVPUSH BID [facility] Last Admin: 09/06/23 09:17 Dose: 40 mg Documented By: AFSHAN Omeprazole (Omeprazole 20 Mg Capsule.Dr) 20 mg PO BID@0630,1630 [facility] Last Admin: 09/06/23 06:11 Dose: 20 mg Documented By: MEHRDAD Ondansetron HCl (Ondansetron Hcl 4 Mg/2 Ml Vial) 4 mg IVPUSH Q6H PRN PRN Reason: Nausea and Vomiting Pharmacy Consult (Consult Rx Vancomycin Dosing) 1 each MISCELLANE DAILY PRN PRN Reason: Consult order Polyethylene Glycol (Polyethylene Glycol 3350 17 Gm Powd.Pack) 17 gm PO DAILY [facility] Last Admin: 09/06/23 11:06 Dose: 17 gm Documented By: AFSHAN Sodium Chloride (0.9 % Sodium Chloride Flush 3 Ml Syringe) 3 ml IVFLUSH QSHIFT [facility] Last Admin: 09/06/23 08:04 Dose: 3 ml Documented By: AFSHAN Venlafaxine HCl (Venlafaxine Hcl Er 37.5 Mg Cap.Er.24h) 37.5 mg PO DAILY [facility] Last Admin: 09/06/23 09:17 Dose: 37.5 mg Documented By: AFSHAN Vitamin D (Cholecalciferol (Vitamin D3) 25 Mcg Tablet) 50 mcg PO BID [facility] Last Admin: 09/06/23 09:17 Dose: 50 mcg Documented By: AFSHAN Labs 09/05/23 05:26 09/06/23 08:50 Labs: Laboratory Results - last 24 hr 09/06/23 08:50 Estim Creat Clear Calc 70.3 Estimated GFR > 60 Microbiology Microbiology Results: Microbiology 09/04/23 01:00 Blood Culture - Preliminary Blood - Venous Streptococcus pneumoniae 09/04/23 08:39 Blood Culture - Preliminary Blood - Venous Streptococcus pneumoniae Assessment and Plan (1) Influenza A: Status: Acute (2) Community acquired pneumonia: Status: Acute Plan 63 y/o F with history of COPD not on home oxygen, anxiety, osteopenia, 50 pack year somking hx ( active smoker)- came with pneumonia ,inflenza A. sepsis sec to pneumonia ,alsoinflenza A, also has mild COPD exacerbation. curb65 -points 2-3 Tachycardia tachypnea, bandemia Lactic acid normal, blood cultures sent Continue nebs, steroids, IV antibiotics ceftriaxone and azithromycin(09/03/23) ,cough syrup,tamiflu. active smoker: added nicotein patch. Anxiety- will start home meds once med reconcilliation completes. dvt prophylax: s/c lovenox. Ongoing hospitalization need: Due to sepsis and pneumonia in the setting of influenza a as well as COPD exacerbation patient will need IV antibiotics, nebs, steroids , respiratory monitoring for any decompensation. Quality Stroke Does the patient have a stroke diagnosis?: No VTE Prior VTE?: No VTE Risk Level:: Medical - moderate - high VTE Device Contraindication: N/A - Device Ordered VTE Drug Contraindication: N/A - Med Ordered
[2023-09-06] MEDS: cefTRIAXone sodium 2 GM in 0.9 % Sodium Chloride 50 ML IV (16:09)
--- NOTE | 2023-09-06 16:26 | W.PM.IDCN ---
History of Present Illness Data of Consult Service Date: 09/06/23 Requesting physician: Brigitte Pacheco Primary Care Provider: Martina Gordon MD HPI Reason for consult: sepsis,strep pneumonia She presents to hospital with shortness of breath and cough for a week. She has productive green phlegm. Her son was ill with URI. She had temperature of 103 and 31 bands. She has not received flu or pneumonia vaccine. Review of Systems Review of Systems: Yes all other systems are reviewed and are negative Constitutional: Constitutional: Reports fever(s) Respiratory: Respiratory: Reports change in phlegm color and Reports cough PMFSH Past Medical History Medical History (Updated 09/06/23 @ 16:34 by Lis Ruelas MD) Sepsis Bacteremia due to Streptococcus pneumoniae Purulent drainage through ear tube Family History Family history: reviewed and not pertinent Surgical History Surgical History History of tonsillectomy Social History Social History Household Members: Children Household Members Other:: son Housing: House Do you presently have visiting nurse or other home services: No Patient Tobacco Use Status: Current everyday Tobacco user Tobacco use type: Cigarette Cigarette Packs Per Day: 1 Cigarettes Per Day: 20.0 e-Cigarette/Vaping Use: Never Used Second Hand Smoke Exposure: No service: No Current occupational status: employed 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 Meds Allergies Allergy/AdvReac Type Severity Reaction Status Date / Time Seasonal Allergies Allergy Intermediate sneeze, Verified 05/12/21 10:24 coughing Active Medications: Current Medications Acetaminophen (Acetaminophen 325 Mg Tablet) 650 mg PO Q6H PRN PRN Reason: Pain, Mild (Pain Scale 1-3) Last Admin: 09/05/23 12:36 Dose: 650 mg Albuterol/Ipratropium (Albuterol/Iprat 2.5/0.5mg 3 Ml Ampul.Neb) 3 ml INHALE Q3H PRN PRN Reason: sob Albuterol/Ipratropium (Albuterol/Iprat 2.5/0.5mg 3 Ml Ampul.Neb) 3 ml INHALE RQ4H RUBY Last Admin: 09/06/23 15:43 Dose: 3 ml Benzonatate (Benzonatate 100 Mg Capsule) 100 mg PO TID PRN PRN Reason: cough Enoxaparin Sodium (Enoxaparin Sodium 40 Mg/0.4 Ml Syringe) 40 mg SUBCUT DAILY [facility] Last Admin: 09/06/23 09:16 Dose: Not Given Fluticasone/Vilanterol (Fluticasone/Vilanterol 200/25 Blst.W.Dev) 1 puff INHALE RDAILY [facility] Last Admin: 09/06/23 11:38 Dose: 1 puff Guaifenesin/Codeine Phosphate (Guaifen/Codeine Sf 200/20/10ml 10 Ml Liquid) 10 ml PO Q4H [facility] Last Admin: 09/06/23 16:09 Dose: 10 ml Azithromycin 500 mg/ Sodium (Chloride) 250 mls @ 125 mls/hr IV DAILY [facility] Last Infusion: 09/06/23 11:33 Dose: Infused Ceftriaxone Sodium 2 gm/ (Sodium Chloride) 50 mls @ 100 mls/hr IV Q24H [facility] Last Admin: 09/06/23 16:09 Dose: 100 mls/hr Loratadine (Loratadine 10 Mg Tablet) 10 mg PO DAILY [facility] Last Admin: 09/06/23 09:17 Dose: 10 mg Methylprednisolone Sodium Succinate (Methylprednisolone Sod Succ 40 Mg/Ml Vial) 40 mg IVPUSH BID [facility] Last Admin: 09/06/23 09:17 Dose: 40 mg Omeprazole (Omeprazole 20 Mg Capsule.Dr) 20 mg PO BID@0630,1630 [facility] Last Admin: 09/06/23 16:09 Dose: 20 mg Ondansetron HCl (Ondansetron Hcl 4 Mg/2 Ml Vial) 4 mg IVPUSH Q6H PRN PRN Reason: Nausea and Vomiting Pharmacy Consult (Consult Rx Vancomycin Dosing) 1 each MISCELLANE DAILY PRN PRN Reason: Consult order Polyethylene Glycol (Polyethylene Glycol 3350 17 Gm Powd.Pack) 17 gm PO DAILY [facility] Last Admin: 09/06/23 11:06 Dose: 17 gm Sodium Chloride (0.9 % Sodium Chloride Flush 3 Ml Syringe) 3 ml IVFLUSH QSHIFT [facility] Last Admin: 09/06/23 16:10 Dose: 3 ml Venlafaxine HCl (Venlafaxine Hcl Er 37.5 Mg Cap.Er.24h) 37.5 mg PO DAILY [facility] Last Admin: 09/06/23 09:17 Dose: 37.5 mg Vitamin D (Cholecalciferol (Vitamin D3) 25 Mcg Tablet) 50 mcg PO BID [facility] Last Admin: 09/06/23 09:17 Dose: 50 mcg Home Medications Medication Instructions Recorded Confirmed Last Taken Type budesonide-formoterol HFA 160 2 puff inhalation BID 05/12/21 09/04/23 09/03/23 History mcg-4.5 mcg/actuation aerosol inhaler (Symbicort) ibuprofen 400 mg tablet 400 mg PO Q8H PRN Pain 05/12/21 09/04/23 Unknown History venlafaxine 37.5 mg 37.5 mg PO DAILY 05/12/21 09/04/23 09/03/23 History capsule,extended release 24 hr albuterol sulfate 2.5 mg/3 mL 2.5 mg inhalation Q6H PRN wheezing 09/04/23 09/04/23 Unknown History (0.083 %) solution for nebulization albuterol sulfate 90 mcg/actuation 1 puff inhalation Q4H PRN 09/04/23 09/04/23 Unknown History aerosol inhaler (Ventolin HFA) Shortness Of Breath Or Wheezing alendronate 10 mg tablet 10 mg PO DAILY 09/04/23 09/04/23 09/03/23 History benzonatate 100 mg capsule 100 mg PO TID PRN cough 09/04/23 09/04/23 Unknown History cetirizine 10 mg tablet 10 mg DAILY 09/04/23 09/04/23 09/03/23 History cholecalciferol (vitamin D3) 50 50 mcg BID 09/04/23 09/04/23 09/03/23 History mcg (2,000 unit) capsule codeine 10 mg-guaifenesin 100 mg/5 5 ml PO Q6H PRN cough 09/04/23 09/04/23 Unknown History mL oral liquid oseltamivir 75 mg capsule 75 mg PO BID 09/04/23 09/04/23 09/03/23 History Physical Exam Vital Signs: Vital Signs: Last Vital Signs Temp 97.5 F 09/06/23 15:57 Pulse 96 09/06/23 15:57 Resp 21 H 09/06/23 15:57 BP 134/64 09/06/23 15:57 Pulse Ox 94 09/06/23 15:57 O2 Del Method Room Air 09/06/23 15:57 O2 Flow Rate 1.5 09/04/23 14:44 BMI result Body Mass Index 18.8 Const: General: cooperative HEENT: Head: Yes normal to inspection Face and sinus: Yes normal facial exam Mouth: Normal oral and palatal mucosa present Teeth and gingiva: dentition normal Eyes: General: appearance normal, both eyes and all related structures Pupils: Equal, round and reactive pupils present Resp: Effort & Inspection: normal respiratory effort Cardio: Rate: regular rate Rhythm: regular rhythm GI: Palpation (GI): Soft to palpation and nontender : General: Yes no CVA tenderness Back/Spine/Pelvis: Back: no CVA tenderness Skin: General skin exam: no rashes or lesions noted Neuro: General: moves all extremities Cranial nerves: Yes Equal, round and reactive pupils present Extrem: General: Yes normal to inspection Psych: Appearance: grossly normal Results Labs 09/05/23 05:26 09/06/23 08:50 Labs: BMP 09/06/23 08:50 Creatinine 0.55 Microbiology Microbiology Results: Microbiology 09/04/23 01:00 Blood - Venous Blood Culture - Preliminary Streptococcus pneumoniae 09/04/23 08:39 Blood - Venous Blood Culture - Preliminary Streptococcus pneumoniae Assessment and Plan (1) Bandemia: Status: Acute (2) Influenza A: Status: Acute (3) Community acquired pneumonia: Status: Acute (4) Bacteremia due to Streptococcus pneumoniae: Status: Acute (5) Sepsis: Status: Acute Plan She has flu associated strep pneumonia bacteremia. She also has influenza A and LLL pneumonia. She had ill exposure She had sepsis Would give IV Ceftriaxone until improved and repeat negative and then po cephalosporin total 14 days. Would offer both flu vaccine and pneumonia vaccine and hopefully patient will accept.
[2023-09-07] VITALS (8 sets, daily range): BP systolic 155–180; BP diastolic 74–92; PULSE 86–94; RESP 17–18; TEMP 36.1–37; O2SAT 87–95
[2023-09-07] MEDS: Omeprazole 20 MG CAPSULE.DR PO ×2 (05:29→16:02)
--- NOTE | 2023-09-07 05:43 | PC.NURSE ---
Pt's 02sat-86% on RA 02 2L applied 90-91%. notified ordered oxygen to titrate.
[2023-09-07 06:12] LABS: Creatinine Clr Calc Pharmacy 74.4; Estimated Glomerular Filt Rate > 60
[2023-09-07] MEDS: Fluticasone/Vilanterol 200/25 BLST.W.DEV 1 PUFF INHALE (07:52)
[2023-09-07] MEDS: Cholecalciferol (Vitamin D3) 25 MCG TABLET 50 MCG PO ×2 (08:50→21:50)
[2023-09-07] MEDS: Loratadine 10 MG TABLET PO (08:50)
[2023-09-07] MEDS: polyethylene glycoL 3350 17 GM POWD.PACK PO (08:50)
[2023-09-07] MEDS: 0.9 % Sodium Chloride Flush 3 ML SYRINGE IVFLUSH ×3 (08:50→21:50)
[2023-09-07] MEDS: Venlafaxine HCl ER 37.5 MG CAP.ER.24H PO (08:50)
[2023-09-07] MEDS: methylPREDNISolone Sod Succ 40 MG/ML VIAL IVPUSH ×2 (08:50→21:50)
[2023-09-07] MEDS: guaiFEN/Codeine SF 200/20/10ML 10 ML LIQUID PO ×3 (08:50→21:50)
[2023-09-07] MEDS: cefuroxime axetiL 500 MG TABLET PO ×2 (10:25→21:50)
[2023-09-07] MEDS: Azithromycin 500 MG TABLET PO (10:25)
--- NOTE | 2023-09-07 10:40 | P.CDIM_ITS ---
PROVIDER RESPONSE TEXT: To clarify, the appropriate diagnosis supported by the clinical indicators: Underweight QUERY TEXT: PHYSICIAN'S DOCUMENTATION REQUEST Date of Query: 09/07/2023 09:12 AM EST Patient Name: Kalina Brantley Admit Date: 09/04/2023 Dear Brigitte Pacheco, A review of the medical record indicates additional documentation may be needed. Please review below and update the documentation accordingly. Clinical Indicators: Clinical nutrition notes BMI 18.8 underweight 43.7kg 5ft Adding ENSURE MAX protein. If possible, please provide an associated diagnosis related to the abnormal BMI, such as: Underweight Weight loss Cachexia Anorexia Other (explain) Clinically unable to determine (explain) Thank you, Brandee Dejesus, CCS, CDIS Use of terms such as suspected, likely, concern for, or probable (associated with a specific diagnosi s that is being evaluated, monitored, or treated as if it exists) are acceptable and can be coded in the inpatient se tting, when documented at the time of discharge. Please use your independent medical judgment in providing your response. THIS QUERY IS PART OF THE PERMANENT MEDICAL RECORD
--- NOTE | 2023-09-07 11:03 | HO.PM.IMPN ---
Subjective Subjective Date of Service: 09/07/23 Interval History: copd excerebation ,influenza A Review of Systems SOB seems similar ,has aggressive productive cough,no fever Physical Exam Vital Signs: Vital Signs: Last Vital Signs Temp 97 F 09/07/23 07:35 Pulse 94 09/07/23 07:54 Resp 18 09/07/23 07:54 BP 165/77 H 09/07/23 07:39 Pulse Ox 93 09/07/23 07:35 O2 Del Method Oxymask 09/07/23 07:35 O2 Flow Rate 2 09/07/23 07:35 BMI result Body Mass Index 18.8 Appearance: Alert.? Oriented X3.?sob with minimun excersion ,talking in small sentences. cvs: rrr, [id number] . res: air entry diminshed at bases ,few faint wheezing b/l. abd: no rebound or guarding ,nt, bs present. ext pulses present , no cyanosis . neuro: axo3 , nonfocal. Objective Data Active Medications Acetaminophen (Acetaminophen 325 Mg Tablet) 650 mg PO Q6H PRN PRN Reason: Pain, Mild (Pain Scale 1-3) Last Admin: 09/05/23 12:36 Dose: 650 mg Documented By: NATALIE Albuterol/Ipratropium (Albuterol/Iprat 2.5/0.5mg 3 Ml Ampul.Neb) 3 ml INHALE Q3H PRN PRN Reason: sob Azithromycin (Azithromycin 500 Mg Tablet) 500 mg PO Q24H REPLACED BY [facility] Last Admin: 09/07/23 10:25 Dose: 500 mg Documented By: AFSHAN Benzonatate (Benzonatate 100 Mg Capsule) 100 mg PO TID PRN PRN Reason: cough Cefuroxime Axetil (Cefuroxime Axetil 500 Mg Tablet) 500 mg PO BID REPLACED BY [facility] Last Admin: 09/07/23 10:25 Dose: 500 mg Documented By: AFSHAN Enoxaparin Sodium (Enoxaparin Sodium 40 Mg/0.4 Ml Syringe) 40 mg SUBCUT DAILY [facility] Last Admin: 09/07/23 08:50 Dose: Not Given Documented By: AFSHAN Non-Admin Reason: Patient Refused Fluticasone/Vilanterol (Fluticasone/Vilanterol 200/25 Blst.W.Dev) 1 puff INHALE RDAILY REPLACED [facility] Last Admin: 09/07/23 07:52 Dose: 1 puff Documented By: ALCON Guaifenesin/Codeine Phosphate (Guaifen/Codeine Sf 200/20/10ml 10 Ml Liquid) 10 ml PO Q6H REPLACED BY [facility] Last Admin: 09/07/23 08:50 Dose: 10 ml Documented By: AFSHAN Loratadine (Loratadine 10 Mg Tablet) 10 mg PO DAILY [facility]PL[facility] Last Admin: 09/07/23 08:50 Dose: 10 mg Documented By: AFSHAN Methylprednisolone Sodium Succinate (Methylprednisolone Sod Succ 40 Mg/Ml Vial) 40 mg IVPUSH BID REPLACED BY [facility] Last Admin: 09/07/23 08:50 Dose: 40 mg Documented By: AFSHAN Omeprazole (Omeprazole 20 Mg Capsule.Dr) 20 mg PO BID@0630,1630 REPLACED BY [facility] Last Admin: 09/07/23 05:29 Dose: 20 mg Documented By: MEHRDAD Ondansetron HCl (Ondansetron Hcl 4 Mg/2 Ml Vial) 4 mg IVPUSH Q6H PRN PRN Reason: Nausea and Vomiting Pharmacy Consult (Consult Rx Vancomycin Dosing) 1 each MISCELLANE DAILY PRN PRN Reason: Consult order Polyethylene Glycol (Polyethylene Glycol 3350 17 Gm Powd.Pack) 17 gm PO DAILY [facility]PL[facility]ED BY [facility] Last Admin: 09/07/23 08:50 Dose: 17 gm Documented By: AFSHAN Sodium Chloride (0.9 % Sodium Chloride Flush 3 Ml Syringe) 3 ml IVFLUSH QSHIFT REPLACED BY [facility] Last Admin: 09/07/23 08:50 Dose: 3 ml Documented By: AFSHAN Venlafaxine HCl (Venlafaxine Hcl Er 37.5 Mg Cap.Er.24h) 37.5 mg PO DAILY REPLACED BY [facility] Last Admin: 09/07/23 08:50 Dose: 37.5 mg Documented By: AFSHAN Vitamin D (Cholecalciferol (Vitamin D3) 25 Mcg Tablet) 50 mcg PO BID REPLACED BY [facility] Last Admin: 09/07/23 08:50 Dose: 50 mcg Documented By: AFSHAN Labs 09/05/23 05:26 09/07/23 Unknown Labs: Laboratory Results - last 24 hr 09/07/23 09/07/23 05:14 Unknown Hold Purple Top SEE NOTE Estim Creat Clear Calc 74.4 Estimated GFR > 60 Microbiology Microbiology Results: Microbiology 09/04/23 01:00 Blood Culture - Final Blood - Venous Streptococcus pneumoniae 09/04/23 08:39 Blood Culture - Final Blood - Venous Streptococcus pneumoniae Assessment and Plan (1) Sepsis: Status: Acute (2) Bacteremia due to Streptococcus pneumoniae: Status: Acute (3) Bandemia: Status: Acute (4) Acute hypoxemic respiratory failure: Status: Acute Plan day3 63 y/o F with history of COPD not on home oxygen, anxiety, osteopenia, 50 pack year somking hx ( active smoker)- came with pneumonia ,inflenza A. acute hypoxemic respiratory failure sec sepsis sec to pneumonia ,alsoinflenza A, also COPD exacerbation. curb65 -points 2-3 Tachycardia and bandemia improving ,tachypnea seems improved Lactic acid normal, blood cultures sent Continue nebs, steroids, IV antibiotics ceftriaxone and azithromycin(09/03/23) ,cough syrup,tamiflu. active smoker: added nicotein patch. Anxiety- will start home meds once med reconcilliation completes. dvt prophylax: s/c lovenox. Ongoing hospitalization need: acute hypoxemic respiratory failure sec Due to sepsis and pneumonia in the setting of influenza a as well as COPD exacerbation patient will need IV antibiotics, nebs, steroids , respiratory monitoring for any decompensation. Quality Stroke Does the patient have a stroke diagnosis?: No VTE Prior VTE?: No VTE Risk Level:: Medical - moderate - high VTE Device Contraindication: N/A - Device Ordered VTE Drug Contraindication: N/A - Med Ordered
[2023-09-07] MEDS: ondansetron HCL 4 MG/2 ML VIAL IVPUSH (16:07)
[2023-09-08 04:00] VITALS: BP 157/78; PULSE 88; RESP 16; TEMP 36.9; O2SAT 95
[2023-09-08] MEDS: Omeprazole 20 MG CAPSULE.DR PO (05:58)
[2023-09-08 06:30] LABS: Creatinine Clr Calc Pharmacy 78.9; Estimated Glomerular Filt Rate > 60
[2023-09-08 07:30] VITALS: BP 159/77; PULSE 90; RESP 12; TEMP 36; O2SAT 97
[2023-09-08] MEDS: Fluticasone/Vilanterol 200/25 BLST.W.DEV 1 PUFF INHALE (07:59)
[2023-09-08 08:00] VITALS: PULSE 83; RESP 18; O2SAT 91
[2023-09-08] MEDS: cefuroxime axetiL 500 MG TABLET PO (09:19)
[2023-09-08] MEDS: 0.9 % Sodium Chloride Flush 3 ML SYRINGE IVFLUSH (09:19)
[2023-09-08] MEDS: Loratadine 10 MG TABLET PO (09:19)
[2023-09-08] MEDS: Cholecalciferol (Vitamin D3) 25 MCG TABLET 50 MCG PO (09:19)
[2023-09-08] MEDS: guaiFEN/Codeine SF 200/20/10ML 10 ML LIQUID PO (09:19)
[2023-09-08] MEDS: Azithromycin 500 MG TABLET PO (09:19)
[2023-09-08] MEDS: Venlafaxine HCl ER 37.5 MG CAP.ER.24H PO (09:19)
[2023-09-08] MEDS: polyethylene glycoL 3350 17 GM POWD.PACK PO (09:20)
--- NOTE | 2023-09-08 09:32 | PM.DS ---
DS: Providers Provider Date of Service: 09/08/23 Date of admission: 09/04/23 12:44 Primary care physician: Martina Gordon MD Consults: 09/05/23 07:25 Consult to Infectious Diseases Routine Consulting Provider: [facility] [place] Infectious Disease Reason for consultation: bacteremia-gram positive DS: Diagnosis Discharge Diagnosis (1) Sepsis: Status: Acute (2) Bacteremia due to Streptococcus pneumoniae: Status: Acute (3) Bandemia: Status: Acute (4) Acute hypoxemic respiratory failure: Status: Acute DS: Summary Hospital Course Hospital Course: Chief Complaint: sob ,cough ,myalgias 63 y/o F with history of COPD not on home oxygen, anxiety, osteopenia, 50 pack year somking hx ( active smoker) : came to hospital for sob ,productive cough with yellowish sputum ,pleurtic pain with coughing,fever ( almost 1week) which is not getting better -she went to [facility] but not stayed due to long wait.her son has flu too.She has been using her at home nebulizers which has provided her with minimal relief. She also reports fevers, temperature at 103?, chills, body aches. She also endorses some intermittent nausea. In ED she has tachycardia, tachypnea, fever(100.8*f) ,leucocytosis 11.2,sodium 132 ,postive for influenza A ,CXR-Patchy bilateral airspace disease, most prominent within the left lower lobe. ekg -nsr. recieved solumedrol,neb,azithro+ceftriaxone -minimal response . Hospital course: Patient was admitted and treated for acute hypoxic respiratory failure related to communitee acquired pneumonia and strep pneumnia bactereamia. Acute respiratory failure was treated with oxygen, inhalers and steroid. She is no longer hypoxic sating at 97 % on room air. Pneumonia and bacteremia were initially treated with IV ceftriaxone, blood cultures reepeated,she is afebrile, ID recommends 14 days of antibiptocs. She will be discharged with oral Ceftin 500 mg twice daily for 12 more days. She will complete 3 more days of Prednisone for exacerbation of COPD Time Attestation Discharge coordination time: Greater than 30 minutes Quality: Safe Use of Opioids Does Pt have an Active Cancer Diagnosis on the Problem List?: No Quality: Stroke Does the patient have a stroke diagnosis?: No Physical Exam Vital Signs: Vital Signs: Last Vital Signs Temp 96.8 F 09/08/23 07:30 Pulse 83 09/08/23 08:00 Resp 18 09/08/23 08:00 BP 159/77 H 09/08/23 07:30 Pulse Ox 97 09/08/23 07:30 O2 Del Method Room Air 09/08/23 07:30 O2 Flow Rate 2 09/08/23 04:00 BMI result Body Mass Index 18.8 Const: Other: General: AO X 3, no acute distress Resp: CTA bilateral CVS: S1,S2,RRR GI: +BS, NT, no distention Skin: No rash Neuro: motor grossly intact Psych: appropriate affect DS: Data Data Completed and Pending Labs on day of discharge: Laboratory Results - last 24 hr 09/08/23 05:50 Hold Purple Top SEE NOTE Creatinine 0.49 L Estim Creat Clear Calc 78.9 Estimated GFR > 60 Discharge Plan Discharge Anticipated Discharge Date/Time: 09/08/23 09:28 Patient Disposition: Home, Self-Care Discharge Diagnosis: Community Acquired Pneumonia Referrals: Martina Gordon MD [Primary Care Provider] - 1 Week Discharge Medications: New cefuroxime axetil 500 mg Tablet 500 mg PO BID Qty: 24 0RF prednisone 20 mg tablet 20 mg PO DAILY Qty: 3 0RF Continued alendronate 10 mg tablet 10 mg PO DAILY albuterol sulfate 2.5 mg /3 mL (0.083 %) solution for nebulization 2.5 mg inhalation Q6H PRN (Reason: wheezing) cetirizine 10 mg tablet 10 mg DAILY benzonatate 100 mg capsule 100 mg PO TID PRN (Reason: cough) Rx Instructions: END DATE: 09/09/23 codeine-guaifenesin 10-100 mg/5 mL liquid 5 ml PO Q6H PRN (Reason: cough) Rx Instructions: END DATE: 09/07/23 albuterol sulfate [Ventolin HFA] 90 mcg/actuation HFA aerosol inhaler 1 puff inhalation Q4H PRN (Reason: Shortness Of Breath Or Wheezing) cholecalciferol (vitamin D3) 50 mcg (2,000 unit) capsule 50 mcg BID budesonide-formoterol [Symbicort] 160-4.5 mcg/actuation HFA aerosol inhaler 2 puff inhalation BID venlafaxine 37.5 mg capsule,extended release 24hr 37.5 mg PO DAILY ibuprofen 400 mg tablet 400 mg PO Q8H PRN (Reason: Pain) Discontinued oseltamivir 75 mg capsule 75 mg PO BID Rx Instructions: END DATE: 09/07/23 Discharge Orders: Discharge Order (Routine); Ordered 09/08/23 Ordered By: Con Ortega Diet: Advance to usual diet Activity on Discharge: As tolerated Stand Alone Forms: Patient Portal Discharge page Care Plan Goals: Full recovery from pneumonia and bacteremia Health Concerns: pneumonia, bacteremia Plan of Treatment: Take Cefuroxime as recommended and follow up with your Doctor in a week use inhalers and take Prednisone for copd Assessment: see above
--- NOTE | 2023-09-08 09:50 | MHC.CLN ---
F/U DIET=REGULAR. ENSURE MAX PROTEIN BID (VANILLA) PROVIDES 300 KCALS, 60 G PROTEIN. VARIABLE INTAKE. CONTINUE REGULAR DIET WITH ENSURE MAX BID. FOLLOW FOR INTAKE.
--- NOTE | 2023-09-08 12:16 | MHC.CM.PN ---
per rounds pt not dc ready waiting for dr gil and blood culture results
--- NOTE | 2023-09-08 12:18 | MHC.CM.PN ---
pt dcd home no skilled servies needed
[2023-09-08] MEDS: ondansetron HCL 4 MG/2 ML VIAL IVPUSH (13:15)
== END 2023-09-08 15:45 | disposition home or self-care (01) | DRG 720 ==
LOC: HO.ED 11:50 → HO.EDOVER 12:58 → HO.S3 13:25
PROVIDERS: Physician Assistant Medical; Admitting Provider Internal Medicine; Emergency Provider Emergency Medicine; PCP Pediatrics; Visit Provider Internal Medicine
DX: A41.9 Sepsis, unspecified organism (principal); J96.01 Acute respiratory failure with hypoxia; J10.00 Influenza due to other identified influenza virus with unspecified type of pneumonia; F17.210 Nicotine dependence, cigarettes, uncomplicated; J44.0 Chronic obstructive pulmonary disease with (acute) lower respiratory infection; B95.3 Streptococcus pneumoniae as the cause of diseases classified elsewhere; R63.6 Underweight; Z68.1 Body mass index [BMI] 19.9 or less, adult; J44.1 Chronic obstructive pulmonary disease with (acute) exacerbation; F41.9 Anxiety disorder, unspecified; Z20.822 Contact with and (suspected) exposure to COVID-19; Z71.6 Tobacco abuse counseling; Z79.899 Other long term (current) drug therapy
CPT/HCPCS: 0241U; 36415; 71045; 80048; 80076; 81001; 81003; 82565; 83605; 83735; 83880; 84484; 85007; 85027; 87040; 87077; 87205; 93005; 94640; 97116; 97162; 99285; J0456; J0696; J1650; J2405; J2920; J2930; J3370

== ENCOUNTER → 2023-09-04 08:31 | Outpatient (BNV) | payer MEDICAID, SELFPAY | PROVIDERS: Admitting Provider Internal Medicine; Emergency Provider Emergency Medicine; PCP Pediatrics; Visit Provider Internal Medicine Cardiovascular Disease | DX: R00.0 Tachycardia, unspecified (principal) | CPT/HCPCS: 93010 ==

== ENCOUNTER → 2023-09-04 12:44 | Outpatient (BNV) | payer MEDICAID, SELFPAY | PROVIDERS: Admitting Provider Internal Medicine; Emergency Provider Emergency Medicine; PCP Pediatrics; Visit Provider Internal Medicine | DX: D72.825 Bandemia (principal); J10.1 Influenza due to other identified influenza virus with other respiratory manifestations; J18.9 Pneumonia, unspecified organism; R78.81 Bacteremia; B95.3 Streptococcus pneumoniae as the cause of diseases classified elsewhere; A41.9 Sepsis, unspecified organism | CPT/HCPCS: 99222 ==

== ENCOUNTER → 2023-09-04 12:44 | Outpatient (BNV) | payer MEDICAID, SELFPAY | PROVIDERS: Admitting Provider Internal Medicine; Emergency Provider Emergency Medicine; PCP Pediatrics; Visit Provider Internal Medicine | DX: A41.9 Sepsis, unspecified organism (principal); R78.81 Bacteremia; B95.3 Streptococcus pneumoniae as the cause of diseases classified elsewhere; D72.825 Bandemia; J96.01 Acute respiratory failure with hypoxia | CPT/HCPCS: 99222; 99232; 99239 ==

== ENCOUNTER 2023-10-01 10:00 | Outpatient (REF) | payer MEDICAID, SELFPAY ==
[2023-10-01 14:50] LABS: MANUAL DIFF FLAG NO
[2023-10-01 14:59] LABS: Basophils Percent Auto 0.5 % (0-2); Eosinophils Absolute Auto 0.2 X10*3/uL (0.0-0.4); Eosinophils Percent Auto 3.1 % (0-4); Hematocrit 40.9 % (37.0-47.0); Imm Gran Abs Auto 0.03 X10*3/uL (0.00-0.03); Imm Gran Pct Auto 0.4 % (0.0-0.4); Lymphocytes Absolute Auto 1.7 X10*3/uL (1.2-4.9); Lymphocytes Percent Auto 23.5 % (20-40); Mean Corpuscular HGB Conc 31.8 g/dl (31.0-35.0); Mean Corpuscular Hemoglobin 32.5 pg (27.0-33.0); Mean Corpuscular Volume 102.3 fL (80.0-98.0); Mean Platelet Volume 8.7 fL (9.4-12.3); Monocytes Absolute Auto 0.7 X10*3/uL (0.1-1.2); Monocytes Percent Auto 8.9 % (2-11); Neutrophils Absolute Auto 4.6 x10*3/uL (2.0-8.3); Neutrophils Percent Auto 63.6 % (45-73); Platelet Count 579 X10*3/uL (160-400); Red Cell Distribution Width 14.3 % (11.0-16.0); White Blood Count 7.3 X10*3/uL (4.8-10.8)
[2023-10-01 15:04] LABS: Appearance Urine Clear; Color Urine Yellow; Glucose Urine UA Negative (Negative); Leukocyte Esterase Urine Negative (Negative); Nitrite Urine Negative (Negative); PH 5.5 (5.0-9.0); Specific Gravity - Urine 1.015 (1.005-1.025); Urine Blood Negative (Negative); Urine Ketones Negative (Negative); Urine Protein Negative (Neg-Trace)
[2023-10-01 15:17] LABS: Alanine Aminotransferase 21 U/L (0-31); Albumin Level 4.3 g/dL (3.5-5.0); Alkaline Phosphatase 103 U/L (39-117); Anion Gap 13 (12-20); Aspartate Amino Transferase 22 U/L (5-31); Bilirubin Direct 0.3 mg/dL (0.0-0.5); Bilirubin Total 0.6 mg/dL (0.0-1.0); Blood Urea Nitrogen 7 mg/dL (9-16); Calcium 9.7 mg/dL (8.4-10.2); Carbon Dioxide 26 mmol/L (22-29); Chloride 107 mmol/L (96-108); Estimated Glomerular Filt Rate > 60; Glucose Fasting 87 mg/dL (60-99); Potassium 3.8 mmol/L (3.3-5.1); Sodium 142 mmol/L (135-145); Total Protein 7.8 g/dL (6.5-8.0)
[2023-10-01 15:41] LABS: Erythrocyte Sedimentation Rate 12 MM/HR (0-20)
[2023-10-01 15:46] LABS: TSH reflex Free T4 1.33 uIU/mL (0.32-4.0); Vitamin D 25-OH Total 46.9 ng/mL (>30)
[2023-10-01 15:57] LABS: Folate 10.9 ng/mL (> or = 4.0); Vitamin B12 430 pg/mL (200-900)
== END 2023-10-01 10:01 | disposition home or self-care (01) ==
LOC: HO.CHCLDS 10:00
PROVIDERS: Visit Provider Pediatrics
DX: J41.8 Mixed simple and mucopurulent chronic bronchitis (principal); M05.9 Rheumatoid arthritis with rheumatoid factor, unspecified; M81.8 Other osteoporosis without current pathological fracture; R63.0 Anorexia
CPT/HCPCS: 36415; 80048; 80076; 81003; 82306; 82607; 82746; 84443; 85025; 85652

== ENCOUNTER 2023-12-09 | Outpatient (REF) | payer MEDICAID, SELFPAY | END 2023-12-09 00:01 | disposition home or self-care (01) | LOC: HO.HHCLNP | PROVIDERS: Visit Provider Pediatrics | DX: Z01.419 Encounter for gynecological examination (general) (routine) without abnormal findings (principal) | CPT/HCPCS: 88142 ==

== ENCOUNTER 2024-09-06 08:48 | Outpatient (REF) | payer MEDICAID, SELFPAY ==
--- NOTE | ~2024-09-06 | XR_ITS ---
EXAMINATION: XR CHEST CLINICAL INFORMATION: Progressive dyspnea at rest with chest tightness COMPARISON: None available. TECHNIQUE: Frontal and lateral views of the chest were obtained. FINDINGS: The lungs are hyperinflated with lucency in the upper lung zones and retrosternal air spaces suggesting underlying COPD. There are no pleural effusions. The cardiomediastinal silhouette is not enlarged. XR/XR chest 2V IMPRESSION: Hyperinflation and lucency in the upper lung zones suggesting underlying COPD. Electronically signed by: William Hodge MD 09/06/2024 09:27 AM DYLAN
== END 2024-09-06 08:49 | disposition home or self-care (01) ==
LOC: HO.XRAY 08:48
PROVIDERS: PCP Pediatrics; Visit Provider Internal Medicine
DX: J44.1 Chronic obstructive pulmonary disease with (acute) exacerbation (principal)
CPT/HCPCS: 71046

== ENCOUNTER 2025-09-06 11:39 | Outpatient (REF) | payer MEDICAID, SELFPAY ==
--- OUTSIDE RECORDS SUMMARY | 2025-09-06 10:30 | XMS_ITS | Encounter Summary ---
Author Organization [employer] Address [address] [facility] [address] [place] [address] Care Team Providers Care Systems Engineering Manager Name Role Phone Martina Gordon MD Primary Care Provider [phone] Encounter Details Date Type Department Care Team ([facility] Contact Info) Description 09/06/2025 10:30 AM EST Office Visit [facility] [address] [place], [place] [phone] Martina Gordon MD [address] [place] [address] Chronic obstructive pulmonary disease with acute lower respiratory infection (CMS/HCC) (HCC) (Primary Dx); Seropositive rheumatoid arthritis (CMS/HCC) (HCC); Tobacco dependence syndrome; Moderate recurrent major depression (CMS/HCC) (HCC); Poor appetite; Weight loss Social History Tobacco Use Types Packs/Day Years Used Date Smoking Tobacco: Every Day Cigarettes 0.5 53 Started: 09/20/1972 Passive Smoke Exposure: Current Depression Answer Date Recorded Patient Health Questionnaire-9 Score 3 11/16/2024 Patient Health Questionnaire-9 Score 3 11/16/2024 Last PHQ-9: Questionnaire Data Not on file 0 11/16/2024 Housing Stability Answer Date Recorded What is your housing situation today? I have rahel ellsworth 11/01/[address] you li ve. Do you have problems with any of the following? None of the above 11/01/2024 Food Insecurity Answer Date Recorded Within the past 12 months, y ou worried that your food would run out before you got money to buy more: Never True 11/01/2024 Within the past 12 months,th e food you bought just didn't last and you didn't have enough money to get more: Never True 08/2025 Transportation Answer Date Recorded In the past 12 months, has l ack of transportation kept you from medical appts, meetings, work or from getting things needed for daily living? No 11/01/2024 Utilities Answer Date Recorded In the past 12 months, has t he electric, gas, oil or water company threatened to shut off services in your home? No 11/01/2024 Depression Answer Date Recorded Patient Health Questionnaire-2 Score 0 11/16/2024 Internet Access Answer Date Recorded Internet Access Q1 Yes 11/01/2024 Internet Access Q2 Not on file 11/01/2024 Comments Unknown Sex and Gender Information Value Date Recorded Sex Assigned at Female 07/20/2022 10:19 AM EDT Legal Sex Female 10:19 AM EDT Gender Identity Female 07/20/2022 10:19 AM EDT Sexual Orientation Straight 07/20/2022 10 :19 AM EDT documented as of this encounter Last Filed Vital Signs Vital Sign Reading Time Taken Comments Blood Pressure 140/80 09/06/2025 11:03 AM EST Pulse 92 09/06/2025 11:03 AM EST Temperature 35.9 C (96.7 F) 09/06/2025 11:03 AM EST Respiratory Rate 12 09/06/2025 11:03 AM EST Oxygen Saturation - - Inhaled Oxygen Concentration - - Weight 39 kg (86 lb) 09/06/2025 11:03 AM EST Height - - Body Mass Index 16.8 12/06/2024 3:13 PM EDT documented in this encounter Progress Notes * Martina Gordon MD - 09/06/2025 10:30 AM EST Subjective Patient ID: Kalina Brantley is a 65 y.o. female who presents for multiple concerns. Kalina Brantley, age 65 years Grief and Associated Anxiety, Weight Loss, and Poor Appetite Since March 2025, following the sudden of her daughter, Kalina Brantley has experienced significant grief, anxiety, and emotional distress. She reports poor appetite and weight loss, with herweight decreasing from 93 lbs to 86 lbs over approximately two months. She was not eating much during this period but states she is now eating better. She attributes her weight loss and lack of appetite to her emotional state and grief. She reports ongoing anxiety and difficulty caring for her son Anderson due to her emotional distress. Insomnia Reports persistent difficulty sleeping. Melatonin has been tried without benefit. She denies improvement in sleep quality. COPD Has a history of COPD. Reports using Symbicort and Singulair, which she feels are effective. Deniesrecent cough. Uses albuterol as needed but has not required frequent use. Insurance recently stopped covering Spiriva, leading to medication changes. Osteoarthritis Reports chronic pain attributed to osteoarthritis, confirmed by rheumatology in June 2025. Denies diagnosis of rheumatoid arthritis. Experiences pain in the back of the neck, shoulders, and upper back, described as knots, pinching, and pulling sensations. Pain is persistent and worsened by stress. Hepatitis C Reports being informed of a positive hepatitis C test by rheumatology in June 2025. Denies knownrisk factors for hepatitis C. States liver function was reported as normal at this time. Smoking and Alcohol Use Reports ongoing tobacco use. States alcohol consumption is occasional, not daily. Review of Systems Constitutional: Negative for activity change, chills, fever and unexpected weight change. Respiratory: Negative for cough, shortness of breath and wheezing. Cardiovascular: Negative for chest pain, palpitations and leg swelling. Gastrointestinal: Negative for abdominal pain and blood in stool. Endocrine: Negative for polydipsia and polyuria. Genitourinary: Negative for decreased urine volume, difficulty urinating, dysuria and hematuria. Musculoskeletal: Negative for arthralgias and gait problem. Skin: Negative for color change and rash. Neurological: Negative for dizziness, light-headedness and headaches. Hematological: Negative for adenopathy. Psychiatric/Behavioral: Positive for behavioral problems and sleep disturbance. Negative for dysphoric mood, hallucinations, self-injury and suicidal ideas. The patient is nervous/anxious. Objective BP (!) 140/80 (BP Location: Left arm, Patient Position: Sitting, BP Cuff Size: Adult) Pulse 92 Temp 96.7 ??F (35.9 ??C) (Oral) Resp 12 Wt 86 lb (39 kg) BMI 16.80 kg/m?? Physical Exam Vitals reviewed. Constitutional: General: She is not in acute distress. Appearance: Normal appearance. She is not ill-appearing. HENT: Head: Normocephalic. Right Ear: Tympanic membrane and ear canal normal. Left Ear: Tympanic membrane and ear canal normal. Nose: Nose normal. Mouth/Throat: Mouth: Mucous membranes are moist. Pharynx: No oropharyngeal exudate or posterior oropharyngeal erythema. Eyes: Extraocular Movements: Extraocular movements intact. Conjunctiva/sclera: Conjunctivae normal. Pupils: Pupils are equal, round, and reactive to light. Cardiovascular: Rate and Rhythm: Normal rate and regular rhythm. Pulses: Normal pulses. Heart sounds: Normal heart sounds. Pulmonary: Effort: Pulmonary effort is normal. No respiratory distress. Breath sounds: Normal breath sounds. Abdominal: Palpations: Abdomen is soft. Musculoskeletal: General: Normal range of motion. Cervical back: Normal range of motion. Right lower leg: No edema. Left lower leg: No edema. Skin: General: Skin is warm. Capillary Refill: Capillary refill takes less than 2 seconds. Findings: No rash. Neurological: General: No focal deficit present. Mental Status: She is alert and oriented to person, place, and time. Psychiatric: Mood and Affect: Mood is anxious. Affect is tearful. Affect is not angry. Behavior: Behavior normal. Behavior is not agitated. Behavior is cooperative. Thought Content: Thought content normal. Thought content is not delusional. Thought content does not include homicidal or suicidal ideation. Thought content does not include homicidal or suicidal plan. Cognition and Memory: Cognition and memory normal. Judgment: Judgment normal. Assessment/Plan Diagnoses and all orders for this visit: Chronic obstructive pulmonary disease with acute lower respiratory infection: - COPD managed with inhalers. No acute exacerbation reported. Lower respiratory infection not discussed as active. - Discontinued Spiriva due to insurance coverage change. Prescribed Incruse Ellipta, 1 inhalation daily. Continued Symbicort. Albuterol to be used as needed. Refill for Symbicort scheduled for September. Pharmacy contacted to confirm medication availability and coverage. Seropositive rheumatoid arthritis: - Resistance Welder determined osteoarthritis, not rheumatoid arthritis, despite positive rheumatoid factor. Inflammation markers normal. Hepatitis C test positive per mine patrol note. - Will repeat hepatitis C antibody and viral load testing. Blood work ordered for comprehensive evaluation including liver and kidney function. Follow-up scheduled to review results. Tobacco dependence syndrome: - Ongoing tobacco use. Moderate recurrent major depression: - Depression and anxiety worsened following bereavement. Venlafaxine not effective and caused nausea at higher dose. - Discontinued venlafaxine. Prescribed paroxetine at low dose for depression and anxiety. Referral to behavioral therapy for patient and son. Follow-up scheduled in 3 weeks via telemedicine to assessresponse to new medication. Poor appetite and weight loss: - Weight loss attributed to poor appetite and emotional distress following bereavement. - Prescribed mirtazapine 7.5 mg at night to improve sleep and appetite. Monitor weight and appetiteat follow-up. Insomnia: - Persistent insomnia not improved with melatonin or venlafaxine. - Continue melatonin 5 mg nightly. Initiate mirtazapine 7.5 mg at night. Monitor sleep quality at follow-up. Neck and shoulder pain: - Chronic neck and shoulder pain likely related to stress and muscle tension. - Offered referral to chiropractor. Offered lidocaine cream for symptomatic relief. Recommended massage therapy. Hepatitis C (possible): - Hepatitis C antibody positive per mine patrol note. No risk factors identified. Awaiting confirmatory testing. - Ordered repeat hepatitis C antibody and viral load testing. Will review results and determine need for treatment if active infection confirmed. Chronic obstructive pulmonary disease with acute lower respiratory infection (CMS/HCC) (HCC) - Umeclidinium Arcadia (Incruse Ellipta) 62.5 MCG/ACT aerosol powder ; Inhale 1 Act (62.5 mcg) Onceper day. - CBC auto differential; Future - Hepatitis C Antibody with Reflex to HCV, RNA, Quantitative, Real-Time PCR; Future - Comprehensive Metabolic Panel; Future - Sed Rate by Modified Westergren; Future - TSH W/Reflex to FT4; Future - HIV-1/2 Antigen and Antibodies, Fourth Generation, with Reflexes; Future Seropositive rheumatoid arthritis (CMS/HCC) (HCC) - CBC auto differential; Future - Hepatitis C Antibody with Reflex to HCV, RNA, Quantitative, Real-Time PCR; Future - Comprehensive Metabolic Panel; Future - Sed Rate by Modified Westergren; Future - TSH W/Reflex to FT4; Future - HIV-1/2 Antigen and Antibodies, Fourth Generation, with Reflexes; Future Tobacco dependence syndrome - CBC auto differential; Future - Hepatitis C Antibody with Reflex to HCV, RNA, Quantitative, Real-Time PCR; Future - Comprehensive Metabolic Panel; Future - Sed Rate by Modified Westergren; Future - TSH W/Reflex to FT4; Future - HIV-1/2 Antigen and Antibodies, Fourth Generation, with Reflexes; Future Moderate recurrent major depression (CMS/HCC) (HCC) - CBC auto differential; Future - Hepatitis C Antibody with Reflex to HCV, RNA, Quantitative, Real-Time PCR; Future - Comprehensive Metabolic Panel; Future - Sed Rate by Modified Westergren; Future - TSH W/Reflex to FT4; Future - HIV-1/2 Antigen and Antibodies, Fourth Generation, with Reflexes; Future Poor appetite - CBC auto differential; Future - Hepatitis C Antibody with Reflex to HCV, RNA, Quantitative, Real-Time PCR; Future - Comprehensive Metabolic Panel; Future - Sed Rate by Modified Westergren; Future - TSH W/Reflex to FT4; Future - HIV-1/2 Antigen and Antibodies, Fourth Generation, with Reflexes; Future Weight loss - CBC auto differential; Future - Hepatitis C Antibody with Reflex to HCV, RNA, Quantitative, Real-Time PCR; Future - Comprehensive Metabolic Panel; Future - Sed Rate by Modified Westergren; Future - TSH W/Reflex to FT4; Future - HIV-1/2 Antigen and Antibodies, Fourth Generation, with Reflexes; Future Other orders - mirtazapine (Remeron) 7.5 MG tablet; Take 1 tablet (7.5 mg) by mouth at bedtime. - melatonin 5 MG tablet; Take 1 tab orally qhs - budesonide-formoterol (Symbicort) 160-4.5 MCG/ACT inhaler; INHALE TWO PUFFS TWICE DAILY, EVERY MORNING AND IN THE EVENING, RINSE MOUTH AFTER USE - PARoxetine (Paxil) 20 MG tablet; Take 1 tablet (20 mg) by mouth in the morning. documented in this encounter Plan of Treatment Upcoming Encounters Date Type Department Care Team (Late st Contact Info) Description 10/11/2025 9:15 AM EST Telemedicine [facility] [address] [place] [address] Martina Gordon MD [address] [place] [address] Scheduled Orders Name Type Priority Associated Diagnoses Orde r Schedule Hepatitis C Antibody with Reflex to HCV, RNA, Quantitative, Real-Time PCR Lab Routine Chronic obstructive pulmonary disease with acute lower respiratory infection (CMS/HCC) (HCC) Seropositive rheumatoid arthritis (CMS/HCC) (HCC) Tobacco dependence syndrome Moderate recurrent major depression (CMS/HCC) (HCC) Poor appetite Weight loss Expected: 09/06/2025, Expires: 09/06/2026 Comprehensive Metabolic Panel Lab Routine Chronic obstructive pulmonary disease with acute lower respiratory infection (CMS/HCC) (HCC) Seropositive rheumatoid arthritis (CMS/HCC) (HCC) Tobacco dependence syndrome Moderate recurrent major depression (CMS/HCC) (HCC) Poor appetite Weight loss Expected: 09/06/2025 (Approximate), Expires: 09/06/2026 TSH W/Reflex to FT4 Lab Routine Chronic obstructive pulmonary disease with acute lower respiratory infection (CMS/HCC) (HCC) Seropositive rheumatoid arthritis (CMS/HCC) (HCC) Tobacco dependence syndrome Moderate recurrent major depression (CMS/HCC) (HCC) Poor appetite Weight loss Expected: 09/06/2025 (Approximate), Expires: 09/06/2026 HIV-1/2 Antigen and Antibodies, Fourth Generation, with Reflexes Lab Routine Chronic obstructive pulmonary disease with acute lower respiratory infection (CMS/HCC) (HCC) Seropositive rheumatoid arthritis (CMS/HCC) (HCC) Tobacco dependence syndrome Moderate recurrent major depression (CMS/HCC) (HCC) Poor appetite Weight loss Expected: 09/06/2025 (Approximate), Expires: 09/06/2026 documented as of this encounter Procedures Procedure Name Priority Date/Time Associated Diagnosis Comments CBC WITH AUTO DIFFERENTIAL Routine 09/06/2025 11:41 AM EST Chronic obstructive pulmonary disease with acute lower respiratory infection (CMS/HCC) (HCC) Seropositive rheumatoid arthritis (CMS/HCC) (HCC) Tobacco dependence syndrome Moderate recurrent major depression (CMS/HCC) (HCC) Poor appetite Weight loss SED RATE BY MODIFIED WESTERGREN Routine 09/06/2025 11:41 AM EST Chronic obstructive pulmonary disease with acute lower respiratory infection (CMS/HCC) (HCC) Seropositive rheumatoid arthritis (CMS/HCC) (HCC) Tobacco dependence syndrome Moderate recurrent major depression (CMS/HCC) (HCC) Poor appetite Weight loss documented in this encounter Results * Sed Rate by Modified Westergren (09/06/2025 11:41 AM EST) Erythrocyte Sedimentation Rate 12 1 - 30 MM/HR [facility] Comment:Patients with polycy themia and many hemoglobin abnormalitiesmay have depressed sed rates whereas patients with anemiamay have elevated sed rates. Blood Venous blood specimen / Unknown 09/06/2025 11:41 AM EST 09/06/2025 3:03 PM EST us Martina Gordon MD LAB BLOOD ORDERABLES Final Re sult [facility] [address] [place] [phone] * (ABNORMAL) CBC auto differential (09/06/2025 11:41 AM EST) White Blood Count 6.7 4.8 - 10.8 X10*3/uL [facility] Red Blood Count 4.17(L) 4.20 - 5.50 X10*6/uL [facility] Hemoglobin 13.3 12.0 - 16.0 g/dl [facility] Hematocrit 40.2 37.0 - 47.0 % [facility] Mean Corpuscular Volume 96.4 80.0 - 98.0 fL [facility] Mean Corpuscular Hemoglobin 31.9 27.0 - 33.0 pg [facility] Mean Corpuscular HGB Conc 33.1 31.0 - 35.0 g/dl [facility] Red Cell Distribution Width 12.9 11.0 - 16.0 % [facility] Platelet Count 445(H) 160 - 400 X10*3/uL [facility] Mean Platelet Volume 8.7(L) 9.4 - 12.3 fL [facility] Neutrophils Percent Auto 61.5 45 - 73 % [facility] Imm Gran Pct Auto 0.3 0.0 - 0.4 % [facility] Lymphocytes Percent Auto 27.8 20 - 40 % [facility] Monocytes Percent Auto 7.3 2 - 11 % [facility] Eosinophils Percent Auto 2.4 0 - 4 % [facility] Basophils Percent Auto 0.7 0 - 2 % [facility] NRBC Pct Auto 0.0 0.0 - 0.2 /100WBC [facility] Neutrophils Absolute Auto 4.1 2.0 - 8.3 x10*3/uL [facility] Imm Gran Abs Auto 0.02 0.00 - 0.03 X10*3/uL [facility] Lymphocytes Absolute Auto 1.9 1.2 - 4.9 X10*3/uL [facility] Monocytes Absolute Auto 0.5 0.1 - 1.2 X10*3/uL [facility] Eosinophils Absolute Auto 0.2 0.0 - 0.4 X10*3/uL [facility] Basophils Absolute Auto 0.1 0.0 - 0.2 X10*3/uL [facility] NRBC Abs Auto 0.000 0.0 - 0.012 X10*3/uL [facility] Blood Venous blood specimen / Unknown 09/06/2025 11:41 AM EST 09/06/2025 3:03 PM EST us Martina Gordon MD LAB BLOOD ORDERABLES Final Re sult [facility] [address] [place] [phone] documented in this encounter Visit Diagnoses Diagnosis Chronic obstructive pulmonary disease with acute lower respiratory infection (CMS/HCC) (HCC)- Primary Seropositive rheumatoid arthritis (CMS/HCC) (HCC) Tobacco dependence syndrome Tobacco use disorder Moderate recurrent major depression (CMS/HCC) (HCC) Major depressive disorder, recurrent episode, moderate Poor appetite Anorexia Weight loss Loss of weight documented in this encounter Additional Health Concerns Assessment Noted Time PHQ-9 Depression Total Score: 3 11/16/19 25 8:47 AM EST documented as of this encounter Care Teams Systems Engineering Manager Relationship Specialty Start Date End Date Martina Gordon MD [address] [place] [phone] PCP - General Family Medicine 09/20/18 documented as of this encounter
[2025-09-06 15:06] LABS: MANUAL DIFF FLAG NO
[2025-09-06 15:19] LABS: Hematocrit 40.2 % (37.0-47.0); Hemoglobin 13.3 g/dl (12.0-16.0); Imm Gran Abs Auto 0.02 X10*3/uL (0.00-0.03); Imm Gran Pct Auto 0.3 % (0.0-0.4); Lymphocytes Absolute Auto 1.9 X10*3/uL (1.2-4.9); Mean Corpuscular HGB Conc 33.1 g/dl (31.0-35.0); Mean Corpuscular Hemoglobin 31.9 pg (27.0-33.0); Mean Corpuscular Volume 96.4 fL (80.0-98.0); NRBC Abs Auto 0.000 X10*3/uL (0.0-0.012); NRBC Pct Auto 0.0 /100WBC (0.0-0.2); Platelet Count 445 X10*3/uL (160-400); Red Blood Count 4.17 X10*6/uL (4.20-5.50); White Blood Count 6.7 X10*3/uL (4.8-10.8)
--- OUTSIDE RECORDS SUMMARY | 2025-09-06 15:23 | XMS_ITS | Encounter Summary ---
Author Organization [employer] Address [address] [facility] [address] [place] [address] Care Team Providers Care Client Services Coordinator Name Role Phone Martina Gordon MD Primary Care Provider [phone] Encounter Details Date Type Department Care Team ([facility] Contact Info) Description 09/03/[address] [facility] [address], [place] [phone] Cinthia Rankin, RN [address] [place] [address] Social History Tobacco Use Types Packs/Day Years [...] AM EDT documented as of this encounter Miscellaneous Notes * Telephone Encounter - Cinthia Rankin RN - 09/03/2025 1:07 PM EST Pt presented to the service desk associate asking for appointment. Brought pt into room 2 with Carol with whom she feels comfortable. Pt in tears regarding the recent of her daughter. Pt states feels it is difficult to go out these days and gets very emotional. Pt denies SI or self harm at this time. Pt wants to discuss several issues with her PCP and does not want to elaborate on this at this time. Pt aware, responsive and in no acute physical distress. Given appointment with PCP at 10:30 todiscuss with PCP. Pt understands and agrees with plan. documented in this encounter Plan of Treatment Upcoming Encounters Date Type Department Care Team (Late st Contact Info) Description 10/11/2025 9:15 AM EST Telemedicine [facility] [address] [place] [address] Martina Gordon MD [address] [place] [phone] documented as of this encounter Visit Diagnoses Not on filedocumented in this encounter Additional Health Concerns Assessment Noted Time PHQ-9 Depression Total Score: 3 11/16/19 25 8:47 AM EST documented as of this encounter Care Teams Client Services Coordinator Relationship Specialty Start Date End Date Martina Gordon MD [address] [place] [phone] PCP - General Family Medicine 09/20/18 documented as of this encounter
--- OUTSIDE RECORDS SUMMARY | 2025-09-06 15:23 | XMS_ITS | Clinical Summary ---
Author Organization [employer] Address [address] [facility] 7t [place] [address] Care Team Providers Care Behavioral Health Director Name Role Phone Martina Gordon MD Primary Care Provider Allergies Active Allergy Reactions Criticality Noted Date Comments Alendronate 03/15/2013 Medications Acetaminophen Extra Strength 500 MG tablet TAKE TWO TABLETS BY MOUTH EVERY 8 HOURS NEEDED 04/20/20 23 Active albuterol (Ventolin HFA) 108 (90 Base) MCG/ACT inhaler INHALE ONE PUFF EVERY 4 HOURS NEEDED 18 g 3 08/16/20 23 Active albuterol (2.5 MG/3ML) 0.083% nebulizer solution Take 3 mL (2.5 mg) by nebulization every 6 (six) hours if needed for wheezing. 75 mL 11 08/31/20 23 Active Nebulizers [facility] Use nebulizer as instructed 1 each 08/31/20 23 Active Respiratory Therapy Supplies (Nebulizer/Tub ing/Mouthpiece ) kit To be used with Nebulizer 1 kit 08/31/20 23 Active cetirizine (ZyrTEC) 10 MG tablet Take 1 tablet (10 mg) by mouth Once per day. 90 tablet 3 11/16/19 25 Active ibuprofen 400 MG tabletIndicati ons:Pain TAKE 1 TO 2 TABLETS EVERY 8 HOURS NEEDED FOR SEVERE PAIN 60 tablet 3 03/19/20 25 Active mirtazapine (Remeron) 7.5 MG tablet Take 1 tablet (7.5 mg) by mouth at bedtime. 30 tablet 3 5 12:35 PM EST 09/06/20 25 2025 Active Umeclidinium [place] (Incruse Ellipta) 62.5 MCG/ACT aerosol powderIndicati ons:Chronic obstructive pulmonary disease with acute lower respiratory infection (CMS/HCC) (HCC) Inhale 1 Act (62.5 mcg) Once per day. 30 each 5 12:35 PM EST 09/06/20 25 Active melatonin 5 MG tablet Take 1 tab orally qhs 30 tablet 11 5 12:35 PM EST 09/06/20 Active budesonide-for moterol (Symbicort) 160-4.5 MCG/ACT inhaler INHALE TWO PUFFS TWICE DAILY, EVERY MORNING AND IN THE EVENING, RINSE MOUTH AFTER USE 10.2 g 09/06/20 Active PARoxetine (Paxil) 20 MG tablet Take 1 tablet (20 mg) by mouth in the morning. 30 tablet 5 12:35 PM EST 09/06/20 25 2025 Active melatonin 5 MG tablet Take 1 tab orally qhs 30 tablet 11 10/01/19 24 2024 Discontinued(R eorder (will not trigger notification to Pharmacy)) cyclobenzaprin e (Flexeril) 10 MG tablet Take 1 tablet (10 mg) by mouth 3 times daily for 10 days. 30 tablet 12/07/19 24 2024 Discontinued(T herapy completed) budesonide-for moterol (Symbicort) 160-4.5 MCG/ACT inhaler INHALE TWO PUFFS TWICE DAILY, EVERY MORNING AND IN THE EVENING, RINSE MOUTH AFTER USE 10.2 g 5 1:30 PM EST 10/03/192024 Discontinued(R eorder (will not trigger notification to Pharmacy)) tiotropium (Spiriva HandiHaler) [address] 1 capsule (18 mcg) into inhaler and inhale in the morning. 30 capsule 11 11/16/19 25 2024 Discontinued(C ost of medication) azithromycin (Zithromax) 250 MG tablet Take 2 tabs orally on day 1, then 1 tab orally daily for 4 more days 6 tablet 11/16/19 25 2024 Discontinued(T herapy completed) venlafaxine XR (Effexor XR) 37.5 MG 24 hr capsule TAKE ONE CAPSULE BY MOUTH EVERY DAY WITH FOOD 30 capsule 11 11/16/19 25 2024 Discontinued(I neffective) Hospital, Clinic, or Other Facility Administered Medication Ordered Dose Route Frequency Start Date End Date Status ipratropium-albuterol (Duo-Neb) 0.5-2.5 mg/3 mL nebulizer solution 3 mLIndications:Flu,SOB (shortness of breath) 3 mL NEBULIZATION Once 08/31/2023 A ctive Active Problems Problem Noted Date Diagnosed Date Moderate recurrent major depression (CMS/HCC) Moderate anxiety 03/30/2017 09/27/2023 Seropositive rheumatoid arthritis (CMS/HCC) 09/21 Osteoporosis 07/16/2015 Chronic obstructive lung disease 07/16/2015 Tobacco dependence syndrome 07/16/201504/2024 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 4 Encounters Date Type Department Care Team Description 09/06/2025 10:30 AM EST Office Visit [facility] [address] [place], [place] [phone] Martina Gordon MD Chronic obstructive pulmonary disease with acute lower respiratory infection (CMS/HCC) (HCC) (Primary Dx); Seropositive rheumatoid arthritis (CMS/HCC) (HCC); Tobacco dependence syndrome; Moderate recurrent major depression (CMS/HCC) (HCC); Poor appetite; Weight loss 09/06/2025 Orders Only [facility] [address] [place] [phone] Martina Gordon MD Moderate recurrent major depression (CMS/HCC) (HCC) (Primary Dx); Weight loss 09/06/2025 Travel 09/03/2025 Telephone [facility] [address] [place] [address] Cinthia Rankin RN from Last 3 Months Social History Tobacco Use Types Packs/Day Years Used Date Smoking Tobacco: Every Day Cigarettes 0.5 53 Started: 09/20/1972 Passive Smoke Exposure: Current Tobacco Cessation:Ready to Q uit: Not Asked; Counseling Given: Not Answered Depression Answer Date Recorded Patient Health Questionnaire-9 [...] Orientation Straight 07/20/2022 10 :19 AM EDT Last Filed Vital Signs Vital Sign Reading Time Taken Comments Blood Pressure 140/80 09/06/2025 11:03 AM EST Pulse 92 09/06/2025 11:03 AM EST Temperature 35.9 C (96.7 F) 09/06/2025 11:03 AM EST Respiratory Rate 12 09/06/2025 11:03 AM EST Oxygen Saturation 95% 12/06/2024 3:13 PM EDT Inhaled Oxygen Concentration - - Weight 39 kg (86 lb) 09/06/2025 11:03 AM EST Height 152.4 cm (5') 12/06/2024 3:13 PM EDT Body Mass Index 16.8 12/06/2024 3:13 PM EDT Plan of Treatment Upcoming Encounters Date Type Department Care Team (Late st Contact Info) Description 10/11/2025 9:15 AM EST Telemedicine [facility] [address] [place] [address] Martina Gordon MD [address] [place] [address] Health Maintenance Due Date Last Done Comments CT Colonography 1960 Colonoscopy 1960 Colorectal Cancer Screening 1960 FIT DNA/Cologuard 1960 FIT 1960 FOBT 1960 Sigmoidoscopy 1960 Hepatitis C Screening 1976 RSV Patients and Patients Aged 60 years or older (1 - Risk 50-74 years 1-dose series) 2008 Zoster Vaccines (1 of 2) 2008 Pneumococcal Vaccine: 50+ Years (2 of 2 - PCV) 11/22/2009 11/22/2008 Mammogram 10/22/2023 10/22/2021, 10/22/2021, 03/10/2019 Lung Cancer Screening 11/16/2024 COVID-19 Vaccine (3 - 2024-2 6 season) 2025 09/02/2021, 08/12/2021 Influenza Vaccine (#1) 2025 DTaP/Tdap/Td Vaccines (2 - T d or Tdap) 10/16/2025 10/16/2015 Alcohol/Substance Use Screening 11/16/2025 11/16/2024 Depression Screening 11/16/2025 11/16/2024, 11/16/2024 SDOH Screening 11/16/2025 11/16/2024 Tobacco Screening 12/11/2025 12/11/2024 HPV/Cotest 12/06/2026 02/02/2019 Pap Smear 12/06/2026 12/07/2023, 12/07/2023 Lipid Panel 05/20/2028 05/20/2023, 01/29/2022 HIB Vaccines Aged Out No longer eligi ble based on patient's age to complete this topic HPV Vaccines Aged Out No longer eligi ble based on patient's age to complete this topic Hepatitis A Vaccines Aged Out No long er eligible based on patient's age to complete this topic Hepatitis B Vaccines Aged Out No long er eligible based on patient's age to complete this topic IPV Vaccines Aged Out No longer eligi ble based on patient's age to complete this topic Meningococcal B Vaccine Aged Out No l onger eligible based on patient's age to complete this topic Meningococcal Vaccine Aged Out No eric brinda eligible based on patient's age to complete this topic RSV under 20 months Aged Out No longe r eligible based on patient's age to complete this topic Rotavirus Vaccines Aged Out No longer eligible based on patient's age to complete this topic Procedures Procedure Name Priority Date/Time Associated Diagnosis Comments SED RATE BY MODIFIED WESTERGREN Routine 09/06/2025 11:41 AM EST Chronic obstructive pulmonary disease with acute lower respiratory infection (CMS/HCC) (HCC) Seropositive rheumatoid arthritis (CMS/HCC) (HCC) Tobacco dependence syndrome Moderate recurrent major depression (CMS/HCC) (HCC) Poor appetite Weight loss CBC WITH AUTO DIFFERENTIAL Routine 09/06/2025 11:41 AM EST Chronic obstructive pulmonary disease with acute lower respiratory infection (CMS/HCC) (HCC) Seropositive rheumatoid arthritis (CMS/HCC) (HCC) Tobacco dependence syndrome Moderate recurrent major depression (CMS/HCC) (HCC) Poor appetite Weight loss PAP SMEAR Routine 12/07/2023 9:15 AM EDT Encounter for gynecological examination with Papanicolaou smear of cervix LIPID PANEL, STANDARD Routine 05/20/2023 3:20 PM EDT Routine medical exam MAMMOGRAM GENERIC Routine 10/22/2021 11: 07 AM EST ZZZ HISTORICAL HPV MRNA E6/E7 Routine 02/02/2019 9:42 AM EDT from Last 3 Months or Most Recently Relevant to Health Maintenance Results * (ABNORMAL) CBC auto differential (09/06/2025 11:41 AM EST) White Blood Count 6.7 4.8 - 10.8 X10*3/uL [facility] Red Blood Count 4.17(L) 4.20 - 5.50 X10*6/uL [facility] Hemoglobin 13.3 12.0 - 16.0 g/dl [facility] Hematocrit 40.2 37.0 - 47.0 % [facility] Mean Corpuscular Volume 96.4 80.0 - 98.0 fL [facility] Mean Corpuscular Hemoglobin 31.9 27.0 - 33.0 pg [facility] Mean Corpuscular HGB Conc 33.1 31.0 - 35.0 g/dl [facility] Red Cell Distribution Width 12.9 11.0 - 16.0 % [facility] Platelet Count 445(H) 160 - 400 X10*3/uL [facility] Mean Platelet Volume 8.7(L) 9.4 - 12.3 fL [facility] Neutrophils Percent Auto 61.5 45 - 73 % [facility] Imm Gran Pct Auto 0.3 0.0 - 0.4 % [facility] Lymphocytes Percent Auto 27.8 20 - 40 % [facility] Monocytes Percent Auto 7.3 2 - 11 % [facility] Eosinophils Percent Auto 2.4 0 - 4 % [facility] Basophils Percent Auto 0.7 0 - 2 % [facility] NRBC Pct Auto 0.0 0.0 - 0.2 /100WBC [facility] Neutrophils Absolute Auto 4.1 2.0 - 8.3 x10*3/uL [facility] Imm Gran Abs Auto 0.02 0.00 - 0.03 X10*3/uL [facility] Lymphocytes Absolute Auto 1.9 1.2 - 4.9 X10*3/uL [facility] Monocytes Absolute Auto 0.5 0.1 - 1.2 X10*3/uL [facility] Eosinophils Absolute Auto 0.2 0.0 - 0.4 X10*3/uL [facility] Basophils Absolute Auto 0.1 0.0 - 0.2 X10*3/uL [facility] NRBC Abs Auto 0.000 0.0 - 0.012 X10*3/uL [facility] Blood Venous blood specimen / Unknown 09/06/2025 11:41 AM EST 09/06/2025 3:03 PM EST Martina Gordon MD LAB BLOOD ORDERABLES Final Re sult Performing Organization Address [facility] Co de Phone Number [facility] [address] [place] [phone] * Sed Rate by Modified Westergren (09/06/2025 11:41 AM EST) Erythrocyte Sedimentation Rate 12 1 - 30 MM/HR [facility] Comment:Patients with polycy themia and many hemoglobin abnormalitiesmay have depressed sed rates whereas patients with anemiamay have elevated sed rates. Blood Venous blood specimen / Unknown 09/06/2025 11:41 AM EST 09/06/2025 3:03 PM EST Martina Gordon MD LAB BLOOD ORDERABLES Final Re sult Performing Organization Address City/[facility] Co de Phone Number [facility] [address] [place] [phone] * Pap Smear (12/07/2023 9:15 AM EDT) Swab Cervix uteri structure / Unknown 12/07/2023 9:15 AM EDT 12/09/2023 3:19 PM EDT Narrative [facility] - 12/20/2023 1:19 PM EDT ----- ------- Name: Kalina Brantley Age/Sex: 63/F : 1960 Unit#: [id number] Attend Dr: Martina Gordon MD Re12/09/23 Status: DEP REF Location: [facility] Disch: ----- ------- SPEC : [id number] RECD: 12/09/23-151 STATUS: MARYCARMEN CONCEPCION NUM: [id number] ARMANDO: 12/07/[address] [facility] [address]: Martina Gordon MD ENTERED: 12/09/23-1519 SP TYPE: Pap Smr OTHR DR: ORDERED: Pap Smear Interpretation Satisfactory for evaluation. No endocervical cells seen. Negative for intraepithelial lesion or malignancy. Clinical Information LMP: Postmenopausal Previous PAP test: 02/02/2019, Unknown findings Material Received ThinPrep-Cervical ----- ------- Signed (signature on file) TE Casanova (ASC) 12/20/23 1319 ----- ------- END OF REPORT Martina Gordon MD LAB CYTOLOGY ORDERABLES Final Result Performing Organization Address City/State/[facility] Co de Phone Number [facility] [address] [place] [address] [phone] * (ABNORMAL) Lipid Panel, Standard (05/20/2023 3:20 PM EDT) Triglycerides 77 <150 mg/dL [facility] Comment:Desirable Triglyceri de: less than 150 mg/dLBorderline High Triglyceride 150-199 mg/dLHigh Triglyceride: 200-499 mg/dLVery High Triglyceride: greater than or equal to 5OO mg/dL Cholesterol 193 <200 mg/dL [facility] Comment:Desirable Cholestero l: less than 200 mg/dLBorderline High Cholesterol: 200-239 mg/dLHigh Cholesterol: greater than 239 mg/dL LDL Cholesterol Calculated 124(H) <100 mg/dL [facility] Comment:Desirable LDL: less than 100 mg/dLNear Optimal/Above Optimal LDL: 110- 129 mg/dLBorderline High LDL: 130-159 mg/dLHigh LDL: 160-189 mg/dLVery High LDL: greater than or equal to 190 mg/dL HDL Cholesterol 54 >40 mg/dL [facility] Comment:Desirable HDL: great er than 40 mg/dL Note: This HDL assay may give artificially low results in patients with liver disease. Blood Venous blood specimen / Unknown 05/20/2023 3:20 PM EDT 05/20/2023 5:45 PM EDT us Martina Gordon MD LAB BLOOD ORDERABLES Final Re sult Performing Organization Address [facility]/ZIP Co de Phone Number [facility] [address] [place] [address] [phone] * Mammography Report 1 (10/22/2021 11:07 AM EST) Anatomical Region Laterality Modality Breast Bilateral Mammography 10/22/2021 11:0 7 AM EST Narrative 10/24/2021 9:53 AM EST Refer to the Notes tab for result details [facility] Procedure: Mammography Report 1 Procedure Note Provider, MD Rosales - 12/13/2022 Refer to the Notes tab for result details [facility] Procedure: Mammography Report 1 us Martina Gordon MD IMG BI PROCEDURES Final Resul t * HPV mRNA E6/E7 (02/02/2019 9:42 AM EDT) HPV mRNA E6/E7 Not Detected NOT DETECTED [facility] Comment: This test was performed using the APTIMA(R) HPV Assay ([employer] This assay detects E6/E7 viral messenger RNA (mRNA) from 14 high-risk HPV types (16,18,31,33,35,39,45,51, 52,56,58,59,66,68). For additional information please refer to: http://education.Eye Phone/faq/BCZ287b0 (This link is being provided for informational/ educational purposes only.) The analytical performance characteristics of this assay have been determined by [employer] [place], [place]. The modifications have not been cleared or approved by the FDA. This assay has been validated pursuant to the CLIA regulations and is used for clinical purposes. Test Performed by [facility] [place], [address] [place] [address] Papi Mccormick M.D., Ph.D., Director of Laboratories , CLIA [id number] Please note: Effective 06/01/2016, HPV testing will be performed using [employer]'s APTIMA test which targets mRNA. Detecting mRNA instead of DNA, as in older methods, offers significant improvements in specificity. 02/02/2019 9:42 AM EDT us Martina Gordon MD HISTORICAL/NON ORDERABLE LABS Final Result [facility] [address] from Last 3 Months or Most Recently Relevant to Health Maintenance Insurance [facility] STANDARD MEDICARE Care Teams Behavioral Health Director Relationship Specialty Start Date End Date Martina Gordon MD [address] [place] [address] PCP - General Family Medicine 09/20/18
--- OUTSIDE RECORDS SUMMARY | 2025-09-06 15:23 | XMS_ITS | Encounter Summary ---
Author Organization [employer] Address [address] [place] [address] Care Team Providers Care Supervisor Assembling Name Role Phone Martina Gordon MD Primary Care Provider [phone] Reason for Referral * Consultation (Urgent) - Authorized Specialty Diagnoses / Procedures Referred By Contac t Referred To Contact Behavioral Health Diagnoses Moderate recurrent major depression (CMS/HCC) (HCC) Weight loss Procedures Referral to Behavioral Health Martina Gordon MD [address] [place] [address] Phone: tel: fax: Referral ID Status Reason Start Date Expiration Date Visits Requested Visits Authorized [id number] Authorized Specialty Services Required 09/06/2026 1 1 Encounter Details Date Type Department Care Team (Late st Contact Info) Description 09/06/2025 Orders Only [facility] [address] [place] [address] Martina Gordon MD [address] [place], [place] [phone] Moderate recurrent major depression (CMS/HCC) (HCC) (Primary Dx); Weight loss Social History Tobacco Use Types [...] AM EDT documented as of this encounter Plan of Treatment Upcoming Encounters Date Type Department Care Team ([facility] Contact Info) Description 10/11/2025 9:15 AM EST Telemedicine [facility] [address] [place] [address] Martina Gordon MD [address] [place] [address] documented as of this encounter Visit Diagnoses Diagnosis Moderate recurrent major depression (CMS/HCC) (HCC)- Primary Major depressive disorder, recurrent episode, moderate Weight loss Loss of weight documented in this encounter Additional Health Concerns Assessment Noted Time PHQ-9 Depression Total Score: 3 11/16/19 25 8:47 AM EST documented as of this encounter Care Teams Supervisor Assembling Relationship Specialty Start Date End Date Martina Gordon MD [address] [place] [phone] PCP - General Family Medicine 09/20/18 documented as of this encounter
--- OUTSIDE RECORDS SUMMARY | 2025-09-06 15:23 | XMS_ITS | Encounter Summary ---
Author Organization [employer] Address [address] [facility] 7 [place] [address] Care Team Providers Care Community Administrator Name Role Phone Martina Gordon MD Primary Care Provider [phone] Reason for Visit * Reason Onset Date Comments Nurse Triage 08/30/2023 Patient 2 of 2 Encounter Details Date Type Department Care Team ([facility] st Contact Info) Description 08/30/2023 Telephone [facility] [address] [place] [address] Martina Gordon MD [address] [place] [address] Nurse Triage (Patient 2 of 2 ) Social History Tobacco Use Types Packs/Day Years Used Date Smoking Tobacco: Never Assessed Comments Unknown Sex and Gender Information Value Date Recorded Sex Assigned at Female 07/20/2022 10:19 AM EDT Legal Sex Female 10:19 AM EDT Gender Identity Female 07/20/2022 10:19 AM EDT Sexual Orientation Straight 07/20/2022 10 :19 AM EDT documented as of this encounter Miscellaneous Notes * Telephone Encounter - Ariela Galvan RN - 08/30/2023 10:45 AM EST Triage call Pt reports started symptoms of body aches, cough, chest pain, sweats and difficulty breathing 08/29/23. Pt denies fever but, reports wheezing and shortness of breath. Pt is producing white colored phlegm. Pt has hx of COPD. Pt sounds winded while talking on the phone. Pt has not tested for Covid. Pt is advised to seek evaluation at closest ED and then call for follow up apt. Pt is advised to monitor for fever, tylenol/ibuprofen for fever of 101 or higher, increase liquid intake especially warm liquids and Pt agrees. Pt agrees with disposition and home care advised. Protocol Used: Cough (Adult) Protocol-Based Disposition: Go to Office or Video Visit Now Video visit offer not recorded Positive Triage Questions: * Mild difficulty breathing (e.g., minimal/no SOB at rest, SOB with walking, pulse < 100) and still present when not coughing * Wheezing is present * All higher-acuity triage questions were negative Care Advice Discussed: * Reassurance and Education - Cough * Cough Medicines * Coughing Spells * Prevent Dehydration * Humidifier * Fever Medicines * Reasons To Call Back - Difficulty breathing - Cough lasts more than 3 weeks - Fever lasts more than 3 days - You become worse * Telephone Encounter - Félix Shetty - 08/30/2023 10:25 AM EST Symptoms: Cough, Fever, Chest Congestion Outcome: Schedule an urgent appointment (within 1 hour) or talk to a nurse or provider soon Reason: Wheezing (high-pitched whistling sound) The caller accepted this outcome documented in this encounter Plan of Treatment Upcoming Encounters Date Type Department Care Team (Late st Contact Info) Description 10/11/2025 9:15 AM EST Telemedicine [facility] [address] [place] [address] Martina Gordon MD [address] [place] [address] documented as of this encounter Visit Diagnoses Not on filedocumented in this encounter Care Teams Community Administrator Relationship Specialty Start Date End Date Martina Gordon MD [address] [place] [address] PCP - General Family Medicine 09/20/18 documented as of this encounter
--- OUTSIDE RECORDS SUMMARY | 2025-09-06 15:23 | XMS_ITS | Encounter Summary ---
Author Organization [employer] Address [address] [facility] 7 [place] [address] Care Team Providers Care Assistant At Surgery Name Role Phone Martina Gordon MD Primary Care Provider [phone] Encounter Details Date Type Department Care Team (Late Contact Info) Description 04/08/2023 Orders Only [facility] MEDICINE [address] [place] [address] Georgia Abreu LPN Social History Tobacco Use Types Packs/Day Years [...] Encounters Date Type Department Care Team (Late Contact Info) Description 10/11/2025 9:15 AM EST Telemedicine [facility] MED & PEDS [address] [place], [place] [phone] Martina Gordon MD [address] [place], [place] [phone] documented as of this encounter Procedures Procedure Name Priority Date/Time Associated Diagnosis Comments HIGH SENSITIVITY TROPONIN I Routine 09/04/2023 8:39 AM EST COMPLETE BLOOD COUNT MAN DIF Routine 09/04/2023 8:39 AM EST SARS COV2/INFLUENZA A/B AND RSV RNA QL NAAT Routine 09/04/2023 8:39 AM EST CBC WITH AUTO DIFFERENTIAL Routine 09/04/2023 8:39 AM EST MAGNESIUM Routine 09/04/2023 8:39 AM EST LACTIC ACID Routine 09/04/2023 8:39 AM EST HEPATIC FUNCTION PANEL Routine 09/04/2023 8:39 AM EST BASIC METABOLIC PANEL Routine 09/04/2023 8:39 AM EST BASIC METABOLIC PANEL, FASTING Routine 05/20/2023 3:20 PM EDT documented in this encounter Results * (ABNORMAL) SARS-CoV-2 RNA, Influenza A/B, and RSV RNA, Ql NAAT (09/04/2023 8:39 AM EST) Influenza A PCR POSITIVE(A) Negative [facility] Influenza B PCR NEGATIVE Negative [facility] Resp Syncy Virus RNA Qual PCR NEGATIVE Negative [facility] SARS COV2 PCR NEGATIVE Negative [facility] Comment:All test results mus t be correlated with clinical findings.Negative results do not preclude SARS-CoV2, influenza Avirus, influenza B virus and/or RSV infectionand should not be used as the sole basis for treatment orother patient management decisions. Negative results must becombined with clinical observations, patient history, andepidemiological information.This test has not been evaluated for monitoring treatment ofinfection.This test has been authorized by the FDA under an EmergencyUse Authorization (EUA) for use by authorized laboratories.Testing performed on the [place] [employer] GeneXpert utilizingreal-time RT-PCR.All SARS CoV2 and positive influenza A/B results arereported to [facility]. 09/04/2023 8:39 AM EST 09/04/2023 8:44 AM EST us Generic External Data Provider LAB MICROBIOLOGY - GENERAL ORDERABLES Final Result [facility] [address] [place] [phone] * High Sensitivity Troponin I (09/04/2023 8:39 AM EST) [facility] TROPONIN I HIGH SENSITIVITY 3.4 <3.5 - 17.0 ng/L [facility] Comment:The Quick high sens itivity Troponin-I results should beused in conjunction with other diagnostic information suchas ECG, clinical observations and information, and patientsymptoms to aid in the diagnosis of [place]. 09/04/2023 8:39 AM EST 09/04/2023 8:44 AM EST us Generic External Data Provider LAB BLOOD ORDERAB LES Final Result Performing Organization Address [facility] Co de Phone Number [facility] [address] [place] [phone] * Magnesium (09/04/2023 8:39 AM EST) [facility] Magnesium 1.6 1.6 - 2.6 mg/dL [facility] 09/04/2023 8:39 AM EST 09/04/2023 8:44 AM EST us Generic External Data Provider LAB BLOOD ORDERAB LES Final Result Performing Organization Address [facility] Co de Phone Number [facility] [address] [place] [phone] * (ABNORMAL) Basic Metabolic Panel (09/04/2023 8:39 AM EST) [facility] Sodium 132(L) 135 - 145 mmol/L [facility] Potassium 3.7 3.3 - 5.1 mmol/L [facility] Chloride 91(L) 96 - 108 mmol/L [facility] Carbon Dioxide 28 22 - 29 mmol/L [facility] Anion Gap 17 12 - 20 [facility] Urea Nitrogen (BUN) 6(L) 9 - 16 mg/dL [facility] Creatinine, Serum 0.64 0.5 - 1.4 mg/dL [facility] Creatinine Clr Calc Pharmacy 57.7 [facility] Comment:Provided height and weight: 152.4 cm,41.73 kg.eGFR (calculated from the MDRD study equation) and eCrCl(calculated from the Cockcroft-Gault equation) are based ondifferent parameters and may not yield comparable results.If eCrCl result is absurd, please check patient'sheight/weight. Estimated Glomerular Filt Rate >60 [facility] Comment:NOTE: For -Am erican individuals, multiply the result by 1.210.Chronic Kidney Disease: Estimated GFR < 60 mL/min/[id number] Kidney Disease: Estimated GFR < 15 mL/min/1.73m2 Glucose 111 60 - 115 mg/dL [facility] Calcium 9.2 8.4 - 10.2 mg/dL [facility] 09/04/2023 8:39 AM EST 09/04/2023 8:44 AM EST us Generic External Data Provider LAB BLOOD ORDERAB LES Final Result [facility] [address] [place] [address] [phone] * Hepatic Function Panel (09/04/2023 8:39 AM EST) Bilirubin, Total 0.7 0.0 - 1.0 mg/dL [facility] Bilirubin, Direct 0.4 0.0 - 0.5 mg/dL [facility] Aspartate Amino Transferase 28 5 - 31 U/L [facility] Alanine Aminotransferase 18 0 - 31 U/L [facility] Total Protein 7.3 6.5 - 8.0 g/dL [facility] Albumin Level 3.9 3.5 - 5.0 g/dL [facility] Alkaline Phosphatase 95 39 - 117 U/L [facility] 09/04/2023 8:39 AM EST 09/04/2023 8:44 AM EST us Generic External Data Provider LAB BLOOD ORDERAB LES Final Result Performing Organization Address City/[facility]/ZIP Co de Phone Number [facility] [address] [place] [phone] * Lactic Acid (09/04/2023 8:39 AM EST) Pathologist [facility] Lactic Acid 1.5 0.5 - 2.0 mmol/L [facility] 09/04/2023 8:39 AM EST 09/04/2023 8:44 AM EST Generic External Data Provider LAB BLOOD ORDERAB LES Final Result Performing Organization Address [facility] de Phone Number [facility] [address] [place] [phone] * (ABNORMAL) Complete Blood Count Manual Diff (09/04/2023 8:39 AM EST) [facility] White Blood Count 11.4(H) 4.8 - 10.8 X10*3/uL [facility] Red Blood Count 4.33 4.20 - 5.50 X10*6/uL [facility] Hemoglobin 13.9 12.0 - 16.0 g/dl [facility] Hematocrit 39.3 37.0 - 47.0 % [facility] Mean Corpuscular Volume 90.8 80.0 - 98.0 fL [facility] Mean Corpuscular Hemoglobin 32.1 27.0 - 33.0 pg [facility] Mean Corpuscular HGB Conc 35.4(H) 31.0 - 35.0 g/dl [facility] Red Cell Distribution Width 12.6 11.0 - 16.0 % [facility] Platelet Count 287 160 - 400 X10*3/uL [facility] Mean Platelet Volume 9.2(L) 9.4 - 12.3 fL [facility] NRBC Pct Auto 0.0 0.0 - 0.2 /100WBC [facility] NRBC Abs Auto 0.000 0.0 - 0.012 X10*3/uL [facility] Neutrophils % Manual 56 45 - 73 % [facility] Band Neutrophils Percent 31(H) 3 - 5 % [facility] Comment:Results of Bands kam led to EVERARDO on 09/04/23at 0910 by NINA. Lymphocytes Percent Manual 9(L) 20 - 40 % [facility] Atypical Lymphs Percent Manual 1 0 - 6 % [facility] Monocytes Percent Manual 3 2 - 11 % [facility] NEUTROPHILS ABSOLUTE MANUAL 9.9(H) 2.0 - 8.3 X10*3/uL [facility] LYMPHOCYTES ABSOLUTE MANUAL 1.0(L) 1.2 - 4.9 X10*3/uL [facility] Atypical Lymph Absolute Manual 0.1 x10*3/uL [facility] MONOCYTES ABSOLUTE MANUAL 0.3 0.1 - 1.2 X10*3/uL [facility] Platelet Estimate NORMAL NORMAL [facility] Platelet Morphology Comment NORMAL [facility] RBC Morphology NORMAL [facility] Dohle Bodies PRESENT [facility] 09/04/2023 8:3 9 AM EST 09/04/2023 8:44 AM EST us Generic External Data Provider LAB BLOOD ORDERAB LES Final Result Performing Organization Address City/State/[facility] Co de Phone Number [facility] [address] [place] [phone] * (ABNORMAL) CBC auto differential (09/04/2023 8:39 AM EST) White Blood Count 11.4(H) 4.8 - 10.8 X10*3/uL [facility] Red Blood Count 4.33 4.20 - 5.50 X10*6/uL [facility] Hemoglobin 13.9 12.0 - 16.0 g/dl [facility] Hematocrit 39.3 37.0 - 47.0 % [facility] Mean Corpuscular Volume 90.8 80.0 - 98.0 fL [facility] Mean Corpuscular Hemoglobin 32.1 27.0 - 33.0 pg [facility] Mean Corpuscular HGB Conc 35.4(H) 31.0 - 35.0 g/dl [facility] Red Cell Distribution Width 12.6 11.0 - 16.0 % [facility] Platelet Count 287 160 - 400 X10*3/uL [facility] Mean Platelet Volume 9.2(L) 9.4 - 12.3 fL [facility] Neutrophils Percent Auto 80.7(H) 45 - 73 % [facility] Imm Gran Pct Auto 2.2(H) 0.0 - 0.4 % [facility] Lymphocytes Percent Auto 11.5(L) 20 - 40 % [facility] Monocytes Percent Auto 5.4 2 - 11 % [facility] Eosinophils Percent Auto 0.0 0 - 4 % [facility] Basophils Percent Auto 0.2 0 - 2 % [facility] NRBC Pct Auto 0.0 0.0 - 0.2 /100WBC [facility] Neutrophils Absolute Auto 9.2(H) 2.0 - 8.3 x10*3/uL [facility] Imm Gran Abs Auto 0.25(H) 0.00 - 0.03 X10*3/uL [facility] Lymphocytes Absolute Auto 1.3 1.2 - 4.9 X10*3/uL [facility] Monocytes Absolute Auto 0.6 0.1 - 1.2 X10*3/uL [facility] Eosinophils Absolute Auto 0.0 0.0 - 0.4 X10*3/uL [facility] Basophils Absolute Auto 0.0 0.0 - 0.2 X10*3/uL [facility] NRBC Abs Auto 0.000 0.0 - 0.012 X10*3/uL [facility] 09/04/2023 8:39 AM EST 09/04/2023 8:44 AM EST us Generic External Data Provider LAB BLOOD ORDERAB LES Edited Result - Final Performing Organization Address [facility] de Phone Number [facility] [address] [place] [phone] * (ABNORMAL) Basic Metabolic Panel, Fasting (05/20/2023 3:20 PM EDT) Sodium 138 135 - 145 mmol/L [facility] Potassium 3.8 3.3 - 5.1 mmol/L [facility] Chloride 105 96 - 108 mmol/L [facility] Carbon Dioxide 22 22 - 29 mmol/L [facility] Anion Gap 15 12 - 20 [facility] Urea Nitrogen (BUN) 7(L) 9 - 16 mg/dL [facility] Creatinine, Serum 0.65 0.5 - 1.4 mg/dL [facility] Estimated Glomerular Filt Rate >60 [facility] Comment:NOTE: For -Am erican individuals, multiply the result by 1.210.Chronic Kidney Disease: Estimated GFR < 60 mL/min/1.82s1Ugjhno Kidney Disease: Estimated GFR < 15 mL/min/1.73m2 Glucose Fasting 82 60 - 99 mg/dL [facility] Calcium 9.8 8.4 - 10.2 mg/dL [facility] 05/20/2023 3:20 PM EDT 05/20/2023 5:45 PM EDT Martina Gordon MD LAB BLOOD ORDERABLES Final Re sult Performing Organization Address [facility] Co de Phone Number [facility] [address] [place] [phone] [phone] documented in this encounter Visit Diagnoses Not on filedocumented in this encounter Care Teams Assistant At Surgery Relationship Specialty Start Date End Date Martina Gordon MD [address] [place] [address] PCP - General Family Medicine 09/20/18 documented as of this encounter
--- OUTSIDE RECORDS SUMMARY | 2025-09-06 15:23 | XMS_ITS | Patient Health Record ---
Author Organization [facility] Address [address] [place] [phone] Care Team Providers Care Bakery Helper Name Role Phone Evan MAYNARD, Martina Primary Care Provider Girma Grissom Unavailable [phone] Allergies Allergen (clinical drug ingredient) Drug/Non Drug Allergy documented on EMR Reaction Allergy Type Onset Date Status seasonal (uncoded) Unknown Allergy A ctive Reason For Referral No Information Medications Medication SIG (Take, Route, Frequency, Duration) Notes Start Date End Date Status MiraLax (colon prep) 8.3 ounce (238) grams mixed with Gatorade or Crystal Light orally begin at 5:00 p.m. the day before the procedure; Duration: 1 day 06/12/2018 Active Ibuprofen Active Spiriva HandiHaler A ctive Symbicort Active Venlafaxine HCl Acti ve ProAir HFA Active Vitamin D-3 Active Dulcolax (colon prep) 5 MG Tablet Delayed Release take at 3:00 p.m and 7:00p.m. Orally two tablets twice a day for one day; Duration: 1 day 06/12/2018 Active Albuterol Sulfate Ac tive MiraLax Active Social History Tobacco Use: Social History Observation Description Date Details (start date - stop date) Current Smoker NA - NA Social History Tobacco Use: Social Info Question Answer Notes Tobacco Use/Smoking Patient is a current smoker How often do you smoke cigarettes? every day How many cigarettes a day do you smoke? 11-20 How soon after you wake up do you smoke your first cigarette? within 5 minutes Are you interested in quitting? Not ready to quit Additional Details Category Social Info Options Details Miscellaneous: Marital status: Occupation: Clerical Section Notes: Smoker 10-15 cigs per day; n o sig alcohol Problems Problem Type SNOMED Code ICD Code Onset Dates Problem Status W/U Status Risk Notes Problem Screening for malignant neoplasm of colon (613959700) Encounter for screening for malignant neoplasm of colon (Z12.11) Active confirmed Problem Constipation (99190012) Constipation, unspecified constipation type (K59.00) Active confirmed Plan Of Treatment Future Test Test Name Order Date COLONOSCOPY 06/10/2018 Insurance Providers Payer Name Payer Address Payer Phone Subscriber Number Group Number Insured Name Patient Relationship to Insured Coverage Start Date Coverage End Date MEDICA[employer] [address] [place] [phone] [id number] JADA FREIRE Self - patient is the insured Medical (General) History Medical History History ICD Code COPD Denies HI,DM,CVA,renal disease Depression Arthritis in hands Surgical History Surgery Date(Month/Year) tonsillectomy and adenoidectomy 1966 tubes in ears 1979
--- OUTSIDE RECORDS SUMMARY | 2025-09-06 15:23 | XMS_ITS | Encounter Summary ---
Author Organization [employer] Address [address] [facility] [address] [place] [address] Care Team Providers Care Firer Glost Kiln Name Role Phone Martina Gordon MD Primary Care Provider [phone] Encounter Details Date Type Department Care Team (Latest Contact Info) Description 09/06/2025 Travel Social History Tobacco Use Types Packs/Day Years [...] Info) Description 10/11/2025 9:15 AM EST Telemedicine [facility] MED & PEDS [address] [place] [phone] Martina Gordon MD [address] [place] [address] documented as of this encounter Visit Diagnoses Not on filedocumented in this encounter Additional Health Concerns Assessment Noted Time PHQ-9 Depression Total Score: 3 11/16/19 25 8:47 AM EST documented as of this encounter Care Teams Firer Glost Kiln Relationship Specialty Start Date End Date Martina Gordon MD [address] [place] [address] PCP - General Family Medicine 09/20/18 documented as of this encounter
[2025-09-06 16:04] LABS: Alanine Aminotransferase 18 U/L (0-31); Albumin Level 4.5 g/dL (3.5-5.0); Alkaline Phosphatase 102 U/L (39-117); Anion Gap 11 (12-20); Aspartate Amino Transferase 29 U/L (5-31); Blood Urea Nitrogen 14 mg/dL (9-16); Calcium 9.3 mg/dL (8.4-10.2); Carbon Dioxide 25 mmol/L (22-29); Chloride 106 mmol/L (96-108); Estimated Glomerular Filt Rate > 60; Potassium 3.9 mmol/L (3.3-5.1); Sodium 138 mmol/L (135-145); Total Protein 7.1 g/dL (6.5-8.0)
[2025-09-07 08:24] LABS: HIV Num 1 6.39 S/CO (0.00-0.99); ~HepC Num1 9.82 S/CO (0.00-0.79); ~Hepatitis C Antibody Reactive (Nonreactive)
[2025-09-07 10:41] LABS: HIV Num 2 0.05 S/CO; HIV Num 3 0.06 S/CO
== END 2025-09-06 11:40 | disposition home or self-care (01) ==
LOC: HO.CHCLDS 11:39
PROVIDERS: Visit Provider Pediatrics
DX: J44.0 Chronic obstructive pulmonary disease with (acute) lower respiratory infection (principal); M05.9 Rheumatoid arthritis with rheumatoid factor, unspecified; F17.200 Nicotine dependence, unspecified, uncomplicated; F33.1 Major depressive disorder, recurrent, moderate; R63.0 Anorexia; R63.4 Abnormal weight loss; Z11.4 Encounter for screening for human immunodeficiency virus [HIV]; Z11.9 Encounter for screening for infectious and parasitic diseases, unspecified; Z11.59 Encounter for screening for other viral diseases
CPT/HCPCS: 36415; 80053; 84443; 85025; 85652; 86803; 87389; 87522

== ENCOUNTER 2025-09-18 15:21 | Outpatient (REF) | payer MEDICAID, SELFPAY ==
[2025-09-18 18:02] LABS: Alanine Aminotransferase 17 U/L (0-31); Albumin Level 4.4 g/dL (3.5-5.0); Alkaline Phosphatase 114 U/L (39-117); Aspartate Amino Transferase 22 U/L (5-31); Total Protein 7.0 g/dL (6.5-8.0)
--- OUTSIDE RECORDS SUMMARY | 2025-09-18 18:46 | XMS_ITS | Clinical Summary ---
Author Organization [employer] Address [address] [facility] [address] [place] [address] Care Team Providers Care Solder Sprayer Name Role Phone Martina Gordon MD Primary Care Provider [phone] Allergies Active Allergy Reactions Criticality Noted Date Comments Alendronate 03/15/2013 Medications * This document contains information received from the source organization and may not represent a complete record from that organization. Acetaminophen Extra Strength 500 MG tablet TAKE [...] 75 mL 11 08/31/20 23 Active Nebulizers [facility] [place] Use nebulizer as instructed 1 each 08/31/20 [...] PM EST 09/06/20 25 2025 Active Umeclidinium Seminary (Incruse Ellipta) 62.5 MCG/ACT aerosol powderIndicati ons:Chronic obstructive pulmonary disease with acute lower respiratory infection (CMS/HCC) (HCC) Inhale 1 Act (62.5 mcg) Once per day. 30 each 5 12:35 PM EST 09/06/20 Active melatonin 5 MG tablet Take 1 tab orally qhs 30 tablet 5 12:35 PM EST 09/06/20 Active budesonide-for [...] Take 1 tab orally qhs 30 tablet 10/01/19 24 2024 Discontinued(R eorder (will not [...] and inhale in the morning. 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 Date Type Department Care Team Description 09/18/2025 Orders Only [facility] [address] [place] [phone] Guadalupe Ruiz MD 09/12/2025 Orders Only [facility] [address] [place] [phone] Niyah Oakes RN Chronic hepatitis C without hepatic coma (HCC) 09/11/2025 Results Follow-Up [address] [address] Allison Santo MD Hepatitis C Viral RNA, Quantitative, Real-Time PCR 09/11/2025 Orders Only [address] [address] Allison Santo MD Chronic hepatitis C without hepatic coma (HCC) (Primary Dx) 09/06/2025 10:30 AM EST Office Visit [facility] [address] [place] [address] Martina Gordon MD Chronic obstructive pulmonary disease with acute lower respiratory infection (CMS/HCC) (HCC) (Primary Dx); Seropositive rheumatoid arthritis (CMS/HCC) (HCC); Tobacco dependence syndrome; Moderate recurrent major depression (CMS/HCC) (HCC); Poor appetite; Weight loss 09/06/2025 Orders Only [facility] [address] [place] [address] Martina Gordon MD Moderate recurrent major depression (CMS/HCC) (HCC) (Primary Dx); Weight loss 09/06/2025 Travel 09/03/2025 Telephone [facility] [address] [place] [address] Cinthia Rankin RN from Last 3 Months [...] Info) Description 10/11/2025 9:15 AM EST Telemedicine [facility] [address] [place] [address] Martina Gordon MD [address] [place] [address] Health Maintenance Due Date Last Done Comments CT Colonography 1960 Colonoscopy 1960 Colorectal Cancer Screening 1960 FIT DNA/Cologuard 1960 FIT 1960 FOBT 1960 Sigmoidoscopy 1960 Hepatitis A Vaccines (1 of 2 - Risk 2-dose series) 1977 RSV Patients and Patients Aged 60 years or older (1 - Risk 50-74 years 1-dose series) 2008 Zoster Vaccines (1 of 2) 2008 Pneumococcal Vaccine: 50+ Years (2 of 2 - PCV) 11/22/2009 11/22/2008 Hepatitis B Vaccines (1 of 3 - Risk 3-dose series) 2018 Mammogram 10/22/2023 10/22/2021, 10/22/2021, 03/10/2019 Lung Cancer [...] Procedure Name Priority Date/Time Associated Diagnosis Comments HEPATIC FUNCTION PANEL Routine 09/18/2025 3:22 PM EST HEPATITIS C VIRAL RNA, QUANTITATIVE, REAL-TIME PCR Routine 09/06/2025 11:41 AM EST Moderate recurrent major depression (CMS/HCC) (HCC) HIV 1/2 ANTIGEN/ANTIBODY, FOURTH GENERATION W/RFL Routine 09/06/2025 11:41 AM EST Chronic obstructive pulmonary disease with acute lower respiratory infection (CMS/HCC) (HCC) Seropositive rheumatoid arthritis (CMS/HCC) (HCC) Tobacco dependence syndrome Moderate recurrent major depression (CMS/HCC) (HCC) Poor appetite Weight loss TSH W/REFLEX TO FT4 Routine 09/06/2025 1 1:41 AM EST Chronic obstructive pulmonary disease with [...] depression (CMS/HCC) (HCC) Poor appetite Weight loss COMPREHENSIVE METABOLIC PANEL Routine 09/06/2025 11:41 AM EST Chronic obstructive pulmonary disease with acute lower respiratory infection (CMS/HCC) (HCC) Seropositive rheumatoid arthritis (CMS/HCC) (HCC) Tobacco dependence syndrome Moderate recurrent major depression (CMS/HCC) (HCC) Poor appetite Weight loss HEPATITIS C AB W/REFL TO HCV RNA, QN, PCR Routine 09/06/2025 11:41 AM EST Chronic obstructive [...] GENERIC Routine 10/22/2021 11: 07 AM EST JAISON HISTORICAL HPV MRNA E6/E7 Routine 02/02/2019 9:42 AM EDT from Last 3 Months or Most Recently Relevant to Health Maintenance Results * Hepatic Function Panel (09/18/2025 3:22 PM EST) Bilirubin, Total 0.3 0.0 - 1.0 mg/dL [facility] Bilirubin, Direct 0.2 0.0 - 0.5 mg/dL [facility] Aspartate Amino Transferase 22 5 - 31 U/L [facility] Alanine Aminotransferase 17 0 - 31 U/L [facility] Total Protein 7.0 6.5 - 8.0 g/dL [facility] Albumin Level 4.4 3.5 - 5.0 g/dL [facility] Alkaline Phosphatase 114 39 - 117 U/L [facility] 09/18/2025 3:22 PM EST 09/18/2025 5:35 PM EST us Guadalupe Ruiz MD LAB BLOOD ORDERABLES Final R esult Performing Organization Address City/[facility]/ZIP Co de Phone Number [facility] [address] [place] [phone] * TSH W/Reflex to FT4 (09/06/2025 11:41 AM EST) TSH reflex Free T4 1.05 0.32 - 4.0 uIU/mL [facility] Blood Venous blood specimen / Unknown 09/06/2025 11:41 AM EST 09/06/2025 3:04 PM EST Martina Gordon MD LAB BLOOD ORDERABLES Final Re sult Performing Organization Address [facility]/ZIP Co de Phone Number [facility] [address] [place] [phone] * (ABNORMAL) Hepatitis C Viral RNA, Quantitative, Real-Time PCR (09/06/2025 11:41 AM EST) Pathologist [facility] Hepatitis C Viral Load 0240348(A ) NOT DETECTED IU/mL [facility] HCV Log PCR 6.20(A) NOT DETECTED Log IU/mL [facility] Comment:For additional infor mation, please refer tohttp://education.[employer]/faq/UBX21m9(This link is being provided for informational/educational purposes only.)THIS TEST WAS PERFORMED AT:[address] [place] [phone] WASSERMAN MD 09/06/2025 11:4 1 AM EST 09/07/2025 12:31 PM EST us Martina Gordon MD LAB BLOOD ORDERABLES Final Re sult [facility] [address] [place] [address] [phone] * (ABNORMAL) CBC auto differential (09/06/2025 11:41 AM EST) Pathologist [facility] White Blood Count 6.7 4.8 - 10.8 X10*3/uL [facility] Red Blood Count 4.17(L) 4.20 - 5.50 X10*6/uL [facility] Hemoglobin 13.3 12.0 - 16.0 g/dl [facility] Hematocrit 40.2 37.0 - 47.0 % [facility] Mean Corpuscular Volume 96.4 80.0 - 98.0 fL [facility] Mean Corpuscular Hemoglobin 31.9 27.0 - 33.0 pg [facility] Mean Corpuscular HGB Conc 33.1 31.0 - 35.0 g/dl [facility] Red Cell Distribution Width 12.9 11.0 - 16.0 % [facility] Platelet Count 445(H) 160 - 400 X10*3/uL [facility] Mean Platelet Volume 8.7(L) 9.4 - 12.3 fL [facility] Neutrophils Percent Auto 61.5 45 - 73 % [facility] Imm Gran Pct Auto 0.3 0.0 - 0.4 % [facility] Lymphocytes Percent Auto 27.8 20 - 40 % [facility] Monocytes Percent Auto 7.3 2 - 11 % [facility] Eosinophils Percent Auto 2.4 0 - 4 % [facility] Basophils Percent Auto 0.7 0 - 2 % [facility] NRBC Pct Auto 0.0 0.0 - 0.2 /100WBC [facility] Neutrophils Absolute Auto 4.1 2.0 - 8.3 x10*3/uL [facility] Imm Gran Abs Auto 0.02 0.00 - 0.03 X10*3/uL [facility] Lymphocytes Absolute Auto 1.9 1.2 - 4.9 X10*3/uL [facility] Monocytes Absolute Auto 0.5 0.1 - 1.2 X10*3/uL [facility] Eosinophils Absolute Auto 0.2 0.0 - 0.4 X10*3/uL [facility] Basophils Absolute Auto 0.1 0.0 - 0.2 X10*3/uL [facility] NRBC Abs Auto 0.000 0.0 - 0.012 X10*3/uL [facility] Blood Venous blood specimen / Unknown 09/06/2025 11:41 AM EST 09/06/2025 3:03 PM EST us Martina Gordon MD LAB BLOOD ORDERABLES Final Re sult [facility] [address] [place] [address] [phone] * (ABNORMAL) Hepatitis C Antibody with Reflex to HCV, RNA, Quantitative, Real- Time PCR (09/06/2025 11:41 AM EST) Hepatitis C Antibody Reactive( A) Nonreactive [facility] Comment:Presumptive evidence of antibodies to HCV. Blood Venous blood specimen / Unknown 09/06/2025 11:41 AM EST 09/06/2025 3:04 PM EST us Martina Gordon MD LAB BLOOD ORDERABLES Final Re sult Performing Organization Address [facility] Co de Phone Number [facility] [address] [place] [phone] * HIV-1/2 Antigen and Antibodies, Fourth Generation, with Reflexes (09/06/2025 11:41 AM EST) Pathologist [facility] HIV AB/AG Nonreactive Nonreactive [facility] Comment:HIV-1 p24 Ag and/or HIV-1/HIV-2 Ab not detected.A test result that is nonreactive does not exclude thepossibility of exposure to or infection with HIV-1 and/orHIV-2. Nonreactive results in this assay for individualswith prior exposure to HIV-1 and/or HIV-2 may be due toantigen and antibody levels that are below the limit ofdetection of this assay.The TrackIF HIV Ag/Ab Combo assay result andsupplemental assay results should be interpreted inconjunction with the patient's clinical presentation,history and other laboratory results. If the results areinconsistent with clinical evidence, additional testing issuggested to confirm the result. Blood Venous blood specimen / Unknown 09/06/2025 11:41 AM EST 09/06/2025 3:04 PM EST us Martina Gordon MD LAB BLOOD ORDERABLES Final Re sult Performing Organization Address City/[facility] Co de Phone Number [facility] [address] [place] [phone] * Sed Rate by Modified Zaida (09/06/2025 11:41 AM EST) Pathologist [facility] Erythrocyte Sedimentation Rate 12 1 - 30 MM/HR [facility] Comment:Patients with polycy themia and many hemoglobin abnormalitiesmay have depressed sed rates whereas patients with anemiamay have elevated sed rates. Blood Venous blood specimen / Unknown 09/06/2025 11:41 AM EST 09/06/2025 3:03 PM EST us Martina Gordon MD LAB BLOOD ORDERABLES Final Re sult [facility] [address] [place] [address] [phone] * (ABNORMAL) Comprehensive Metabolic Panel (09/06/2025 11:41 AM EST) Sodium 138 135 - 145 mmol/L [facility] Potassium 3.9 3.3 - 5.1 mmol/L [facility] Chloride 106 96 - 108 mmol/L [facility] Carbon Dioxide 25 22 - 29 mmol/L [facility] Anion Gap 11(L) 12 - 20 [facility] Urea Nitrogen (BUN) 14 9 - 16 mg/dL [facility] Creatinine, Serum 0.64 0.5 - 1.4 mg/dL [facility] Estimated Glomerular Filt Rate >60 [facility] Comment:Chronic Kidney Disea se: Estimated GFR < 60 mL/min/[id number] Kidney Disease: Estimated GFR < 15 mL/min/1.73m2 Glucose 106 60 - 115 mg/dL [facility] Calcium 9.3 8.4 - 10.2 mg/dL [facility] Bilirubin, Total 0.5 0.0 - 1.0 mg/dL [facility] Aspartate Amino Transferase 29 5 - 31 U/L [facility] Alanine Aminotransferase 18 0 - 31 U/L [facility] Total Protein 7.1 6.5 - 8.0 g/dL [facility] Albumin Level 4.5 3.5 - 5.0 g/dL [facility] Alkaline Phosphatase 102 39 - 117 U/L [facility] Blood Venous blood specimen / Unknown 09/06/2025 11:41 AM EST 09/06/2025 3:04 PM EST us Martina Gordon MD LAB BLOOD ORDERABLES Final Re sult [facility] [address] [place] [phone] * Pap Smear (12/07/2023 9:15 AM EDT) Swab Cervix uteri structure / Unknown 12/07/2023 9:15 AM EDT 12/09/2023 3:19 PM EDT Narrative [facility] - 12/20/2023 1:19 PM EDT ----- ------- Name: Kalina Brantley Age/Sex: 63/F : 1960 Unit#: [id number] Attend Dr: Martina Gordon MD Re12/09/23 Status: [facility] REF Location: [facility] Disch: ----- ------- SPEC : [id number] RECD: 12/09/23-151 STATUS: SOUT REQ NUM: [id number] ARMANDO: 12/07/23-914 [facility] [address]: Martina Gordon MD ENTERED: 12/09/23-1519 SP TYPE: Pap [facility] DR: ORDERED: Pap Smear Interpretation Satisfactory for evaluation. No endocervical cells seen. Negative for intraepithelial lesion or malignancy. Clinical Information LMP: Postmenopausal Previous PAP test: 02/02/2019, Unknown findings Material Received ThinPrep-Cervical ----- ------- Signed (signature on file) TE Casanova (ASCP) 12/20/23 1319 ----- ------- END OF REPORT us Martina Gordon MD LAB CYTOLOGY ORDERABLES Final Result [facility] [address] [place] [phone] * (ABNORMAL) Lipid Panel, Standard (05/20/2023 3:20 PM EDT) Triglycerides 77 <150 mg/dL [facility] Comment:Desirable Triglyceri de: less than 150 mg/dLBorderline High Triglyceride 150-199 mg/dLHigh Triglyceride: 200-499 mg/dLVery High Triglyceride: greater than or equal to 5OO mg/dL Cholesterol 193 <200 mg/dL [facility] Comment:Desirable Cholestero l: less than 200 mg/dLBorderline High Cholesterol: 200-239 mg/dLHigh Cholesterol: greater than 239 mg/dL LDL Cholesterol Calculated 124(H) <100 mg/dL [facility] Comment:Desirable LDL: less than 100 mg/dLNear Optimal/Above Optimal LDL: 110- 129 mg/dLBorderline High LDL: 130-159 mg/dLHigh LDL: 160-189 mg/dLVery High LDL: greater than or equal to 190 mg/dL HDL Cholesterol 54 >40 mg/dL [facility] Comment:Desirable HDL: great er than 40 mg/dL Note: This HDL assay may give artificially low results in patients with liver disease. Blood Venous blood specimen / Unknown 05/20/2023 3:20 PM EDT 05/20/2023 5:45 PM EDT us Martina Gordon MD LAB BLOOD ORDERABLES Final Re sult [facility] [address] [place] [phone] * Mammography Report 1 (10/22/2021 11:07 [...] HPV mRNA E6/E7 Not Detected NOT DETECTED [facility] Comment: This test was performed using the APTIMA(R) HPV Assay ([employer] This assay detects E6/E7 viral messenger RNA (mRNA) from 14 high-risk HPV types (16,18,31,33,35,39,45,51, 52,56,58,59,66,68). For additional information please refer to: http://education.[employer]/faq/YDF872g4 (This link is being provided for informational/ educational purposes only.) The analytical performance characteristics of this assay have been determined by [employer] [place], [place]. The modifications have not been cleared or approved by the FDA. This assay has been validated pursuant to the CLIA regulations and is used for clinical purposes. Test Performed by [facility], [address] [place] [phone] Papi Mccormick M.D., Ph.D., Director of Laboratories , CLIA [id number] Please note: Effective 06/01/2016, HPV testing will be performed using [employer]'s APTIMA test which targets mRNA. Detecting mRNA instead of DNA, as in older methods, offers significant improvements in specificity. 02/02/2019 9:42 AM EDT Martina Gordon MD HISTORICAL/NON ORDERABLE LABS Final Result [facility] [address] from Last 3 Months or Most Recently Relevant to Health Maintenance Insurance [facility] [employer] MEDIC[facility] Care Teams Solder Sprayer Relationship Specialty Start Date End Date Martina Gordon MD [address] [place] [address] PCP - General Family Medicine 09/20/18
--- OUTSIDE RECORDS SUMMARY | 2025-09-18 18:46 | XMS_ITS | Encounter Summary ---
Author Organization [employer] Address [address] [place] [address] [address] [place] [address] Care Team Providers Care Product Development Ecologist Name Role Phone Martina Gordon MD Primary Care Provider [phone] Reason for Referral * Consultation (Routine) - Closed Specialty Diagnoses / Procedures Referred By Solis odonnell Referred To Contact Family Medicine Diagnoses Chronic hepatitis C without hepatic coma (HCC) Allison Santo MD [address] [place] [address] Phone: tel: fax: Referral ID Status Reason Start Date Expiration Date V isits Requested Visits Authorized [id number] Closed Specialty Services Required 09/11/2025 09/11/2026 1 1 Encounter Details Date Type Department Care Team ([facility] st Contact Info) Description 09/11/2025 Orders Only [facility] [address] [place] [phone] Allison Santo MD [address] [place], [place] [phone] Chronic hepatitis C without hepatic coma (HCC) (Primary Dx) Social History Tobacco Use Types Packs/Day Years Used Date Smoking Tobacco: Every Day Cigarettes 0.5 53 Started: 09/20/1972 Passive Smoke Exposure: Current Depression Answer Date Recorded Patient Health Questionnaire-9 Score 3 11/16/2024 Patient Health Questionnaire-9 Score 3 11/16/2024 Last PHQ-9: Questionnaire Data Not on file 0 11/16/2024 Housing Stability Answer Date Recorded What is your housing situation today? I have rahel sing 11/01/[address] you li [...] Upcoming Encounters Date Type Department Care Team ([facility] Contact Info) Description 10/11/2025 9:15 AM EST Telemedicine [facility] [address] [place] [address] Martina Gordon MD [address] [place] [address] Scheduled Referrals Name Type Priority Associated Diagnoses Order Schedule Referral to [facility] Infectious Disease (HIV & Hep C) Outpatient Referral Routine Chronic hepatitis C without hepatic coma (HCC) Expected: 09/11/2025 (Approximate), Expires: 09/11/2026 documented as of this encounter Visit Diagnoses Diagnosis Chronic hepatitis C without hepatic coma (HCC)- Primary documented in this encounter Additional Health Concerns Assessment Noted Time PHQ-9 Depression Total Score: 3 11/16/19 25 8:47 AM EST documented as of this encounter Care Teams Product Development Ecologist Relationship Specialty Start Date End Date Martina Gordon MD [address] [place] [phone] PCP - General Family Medicine 09/20/18 documented as of this encounter
--- OUTSIDE RECORDS SUMMARY | 2025-09-18 18:46 | XMS_ITS | Encounter Summary ---
Author Organization [employer] Address [address] [place] [address] 7 [place] [address] Care Team Providers Care Vocal Music Instructor Name Role Phone Martina Gordon MD Primary Care Provider [phone] Encounter Details Date Type Department Care Team (Late Contact Info) Description 04/08/2023 Orders Only [facility] MEDICINE [address] [place] [address] Georgia Abreu LPN Social History Tobacco Use [...] Info) Description 10/11/2025 9:15 AM EST Telemedicine [facility] MED & PEDS [address] [place], [place] [phone] Martina Gordon MD [address] [place], [place] [phone] documented as of this encounter Procedures Procedure [...] AM EST) Influenza A PCR POSITIVE(A) Negative [facility] Influenza B PCR NEGATIVE Negative [facility] Resp Syncy Virus RNA Qual PCR NEGATIVE Negative [facility] SARS COV2 PCR NEGATIVE Negative [facility] Comment:All test results mus t be [...] use by authorized laboratories.Testing performed on the GitHub GeneXpert utilizingreal-time RT-PCR.All SARS CoV2 and positive influenza A/B results arereported to [facility]. 09/04/2023 8:39 AM EST 09/04/2023 8:44 AM EST us Generic External Data Provider LAB MICROBIOLOGY - GENERAL ORDERABLES Final Result [facility] [address] [place] [phone] * High Sensitivity Troponin I (09/04/2023 8:39 AM EST) [facility] TROPONIN I HIGH SENSITIVITY 3.4 <3.5 - 17.0 ng/L [facility] Comment:The Quick high sens itivity Troponin-I results should beused in conjunction with other diagnostic information suchas ECG, clinical observations and information, and patientsymptoms to aid in the diagnosis of AL. 09/04/2023 8:39 AM EST 09/04/2023 8:44 AM EST us Generic External Data Provider LAB BLOOD ORDERAB LES Final Result Performing Organization Address [facility] Co de Phone Number [facility] [address] [place] [phone] * Magnesium (09/04/2023 8:39 AM EST) [facility] Magnesium 1.6 1.6 - 2.6 mg/dL [facility] 09/04/2023 8:39 AM EST 09/04/2023 8:44 AM EST us Generic External Data Provider LAB BLOOD ORDERAB LES Final Result Performing Organization Address [facility] Co de Phone Number [facility] [address] [place] [phone] * (ABNORMAL) Basic Metabolic Panel (09/04/2023 8:39 AM EST) [facility] Sodium 132(L) 135 - 145 mmol/L [facility] Potassium 3.7 3.3 - 5.1 mmol/L [facility] Chloride 91(L) 96 - 108 mmol/L [facility] Carbon Dioxide 28 22 - 29 mmol/L [facility] Anion Gap 17 12 - 20 [facility] Urea Nitrogen (BUN) 6(L) 9 - 16 mg/dL [facility] Creatinine, Serum 0.64 0.5 - 1.4 mg/dL [facility] Creatinine Clr Calc Pharmacy 57.7 [facility] Comment:Provided height and weight: 152.4 cm,41.73 kg.eGFR (calculated from the MDRD study equation) and eCrCl(calculated from the Cockcroft-Gault equation) are based ondifferent parameters and may not yield comparable results.If eCrCl result is absurd, please check patient'sheight/weight. Estimated Glomerular Filt Rate >60 [facility] Comment:NOTE: For -Am erican individuals, multiply the result by 1.210.Chronic Kidney Disease: Estimated GFR < 60 mL/min/1.37f4Couyiq Kidney Disease: Estimated GFR < 15 mL/min/1.73m2 Glucose 111 60 - 115 mg/dL [facility] Calcium 9.2 8.4 - 10.2 mg/dL [facility] 09/04/2023 8:39 AM EST 09/04/2023 8:44 AM EST us Generic External Data Provider LAB BLOOD ORDERAB LES Final Result [facility] [address] [place] [address] [phone] * Hepatic Function Panel (09/04/2023 8:39 AM EST) Bilirubin, Total 0.7 0.0 - 1.0 mg/dL [facility] Bilirubin, Direct 0.4 0.0 - 0.5 mg/dL [facility] Aspartate Amino Transferase 28 5 - 31 U/L [facility] Alanine Aminotransferase 18 0 - 31 U/L [facility] Total Protein 7.3 6.5 - 8.0 g/dL [facility] Albumin Level 3.9 3.5 - 5.0 g/dL [facility] Alkaline Phosphatase 95 39 - 117 U/L [facility] 09/04/2023 8:39 AM EST 09/04/2023 8:44 AM EST us Generic External Data Provider LAB BLOOD ORDERAB LES Final Result Performing Organization Address City/[facility]/ZIP Co de Phone Number [facility] [address] [place] [phone] * Lactic Acid (09/04/2023 8:39 AM EST) Pathologist [facility] Lactic Acid 1.5 0.5 - 2.0 mmol/L [facility] 09/04/2023 8:39 AM EST 09/04/2023 8:44 AM EST Generic External Data Provider LAB BLOOD ORDERAB LES Final Result Performing Organization Address [facility] de Phone Number [facility] [address] [place] [phone] * (ABNORMAL) Complete Blood Count Manual Diff (09/04/2023 8:39 AM EST) [facility] White Blood Count 11.4(H) 4.8 - 10.8 X10*3/uL [facility] Red Blood Count 4.33 4.20 - 5.50 X10*6/uL [facility] Hemoglobin 13.9 12.0 - 16.0 g/dl [facility] Hematocrit 39.3 37.0 - 47.0 % [facility] Mean Corpuscular Volume 90.8 80.0 - 98.0 fL [facility] Mean Corpuscular Hemoglobin 32.1 27.0 - 33.0 pg [facility] Mean Corpuscular HGB Conc 35.4(H) 31.0 - 35.0 g/dl [facility] Red Cell Distribution Width 12.6 11.0 - 16.0 % [facility] Platelet Count 287 160 - 400 X10*3/uL [facility] Mean Platelet Volume 9.2(L) 9.4 - 12.3 fL [facility] NRBC Pct Auto 0.0 0.0 - 0.2 /100WBC [facility] NRBC Abs Auto 0.000 0.0 - 0.012 X10*3/uL [facility] Neutrophils % Manual 56 45 - 73 % [facility] Band Neutrophils Percent 31(H) 3 - 5 % [facility] Comment:Results of Bands kam led to EVERARDO on 09/04/23at 0910 by NINA. Lymphocytes Percent Manual 9(L) 20 - 40 % [facility] Atypical Lymphs Percent Manual 1 0 - 6 % [facility] Monocytes Percent Manual 3 2 - 11 % [facility] NEUTROPHILS ABSOLUTE MANUAL 9.9(H) 2.0 - 8.3 X10*3/uL [facility] LYMPHOCYTES ABSOLUTE MANUAL 1.0(L) 1.2 - 4.9 X10*3/uL [facility] Atypical Lymph Absolute Manual 0.1 x10*3/uL [facility] MONOCYTES ABSOLUTE MANUAL 0.3 0.1 - 1.2 X10*3/uL [facility] Platelet Estimate NORMAL NORMAL [facility] Platelet Morphology Comment NORMAL [facility] RBC Morphology NORMAL [facility] Dohle Bodies PRESENT [facility] 09/04/2023 8:3 9 AM EST 09/04/2023 8:44 AM EST us Generic External Data Provider LAB BLOOD ORDERAB LES Final Result Performing Organization Address City/State/[facility] Co de Phone Number [facility] [address] [place] [phone] * (ABNORMAL) CBC auto differential (09/04/2023 8:39 AM EST) White Blood Count 11.4(H) 4.8 - 10.8 X10*3/uL [facility] Red Blood Count 4.33 4.20 - 5.50 X10*6/uL [facility] Hemoglobin 13.9 12.0 - 16.0 g/dl [facility] Hematocrit 39.3 37.0 - 47.0 % [facility] Mean Corpuscular Volume 90.8 80.0 - 98.0 fL [facility] Mean Corpuscular Hemoglobin 32.1 27.0 - 33.0 pg [facility] Mean Corpuscular HGB Conc 35.4(H) 31.0 - 35.0 g/dl [facility] Red Cell Distribution Width 12.6 11.0 - 16.0 % [facility] Platelet Count 287 160 - 400 X10*3/uL [facility] Mean Platelet Volume 9.2(L) 9.4 - 12.3 fL [facility] Neutrophils Percent Auto 80.7(H) 45 - 73 % [facility] Imm Gran Pct Auto 2.2(H) 0.0 - 0.4 % [facility] Lymphocytes Percent Auto 11.5(L) 20 - 40 % [facility] Monocytes Percent Auto 5.4 2 - 11 % [facility] Eosinophils Percent Auto 0.0 0 - 4 % [facility] Basophils Percent Auto 0.2 0 - 2 % [facility] NRBC Pct Auto 0.0 0.0 - 0.2 /100WBC [facility] Neutrophils Absolute Auto 9.2(H) 2.0 - 8.3 x10*3/uL [facility] Imm Gran Abs Auto 0.25(H) 0.00 - 0.03 X10*3/uL [facility] Lymphocytes Absolute Auto 1.3 1.2 - 4.9 X10*3/uL [facility] Monocytes Absolute Auto 0.6 0.1 - 1.2 X10*3/uL [facility] Eosinophils Absolute Auto 0.0 0.0 - 0.4 X10*3/uL [facility] Basophils Absolute Auto 0.0 0.0 - 0.2 X10*3/uL [facility] NRBC Abs Auto 0.000 0.0 - 0.012 X10*3/uL [facility] 09/04/2023 8:39 AM EST 09/04/2023 8:44 AM EST us Generic External Data Provider LAB BLOOD ORDERAB LES Edited Result - Final Performing Organization Address [facility] de Phone Number [facility] [address] [place] [phone] * (ABNORMAL) Basic Metabolic Panel, Fasting (05/20/2023 3:20 PM EDT) Sodium 138 135 - 145 mmol/L [facility] Potassium 3.8 3.3 - 5.1 mmol/L [facility] Chloride 105 96 - 108 mmol/L [facility] Carbon Dioxide 22 22 - 29 mmol/L [facility] Anion Gap 15 12 - 20 [facility] Urea Nitrogen (BUN) 7(L) 9 - 16 mg/dL [facility] Creatinine, Serum 0.65 0.5 - 1.4 mg/dL [facility] Estimated Glomerular Filt Rate >60 [facility] Comment:NOTE: For -Am erican individuals, multiply the result by 1.210.Chronic Kidney Disease: Estimated GFR < 60 mL/min/1.69m7Hmxtkp Kidney Disease: Estimated GFR < 15 mL/min/1.73m2 Glucose Fasting 82 60 - 99 mg/dL [facility] Calcium 9.8 8.4 - 10.2 mg/dL [facility] 05/20/2023 3:20 PM EDT 05/20/2023 5:45 PM EDT Martina Gordon MD LAB BLOOD ORDERABLES Final Re sult Performing Organization Address [facility] Co de Phone Number [facility] [address] [place] [phone] documented in this encounter Visit Diagnoses Not on filedocumented in this encounter Care Teams Vocal Music Instructor Relationship Specialty Start Date End Date Martina Gordon MD [address] [place] [address] PCP - General Family Medicine 09/20/18 documented as of this encounter
--- OUTSIDE RECORDS SUMMARY | 2025-09-18 18:46 | XMS_ITS | Encounter Summary ---
Author Organization [employer] Address [address] [facility] 7 [place] [address] Care Team Providers Care Psychiatric Cns Name Role Phone Martina Gordon MD Primary Care Provider [phone] Reason for Visit * Reason Onset Date Comments Nurse Triage 08/30/2023 Patient 2 of 2 Encounter Details Date Type Department Care Team ([facility] st Contact Info) Description 08/30/2023 Telephone [facility] MEDICINE [address] [place] [address] Martina Gordon MD [address] [place] [address] Nurse Triage (Patient 2 of 2 ) [...] Info) Description 10/11/2025 9:15 AM EST Telemedicine [facility] MED & PEDS [address] [place] [address] Martina Gordon MD [address] [place] [address] documented as of this encounter Visit Diagnoses Not on filedocumented in this encounter Care Teams Psychiatric Cns Relationship Specialty Start Date End Date Martina Gordon MD [address] [place] [address] PCP - General Family Medicine 09/20/18 documented as of this encounter
--- OUTSIDE RECORDS SUMMARY | 2025-09-18 18:46 | XMS_ITS | Encounter Summary ---
Author Organization [employer] Address [address] [facility] [address] [place] [address] Care Team Providers Care Clothing Sorter Name Role Phone Martina Gordon MD Primary Care Provider [phone] Encounter Details Date Type Department Care Team ([facility] Contact Info) Description 09/18/2025 Orders Only [facility] MEDICINE [address] [place], [place] [phone] Guadalupe Ruiz MD [address] [place], [place] [phone] Social History Tobacco Use Types Packs/Day Years [...] Upcoming Encounters Date Type Department Care Team ([facility] st Contact Info) Description 10/11/2025 9:15 AM EST Telemedicine [facility] MED & PEDS [address] [place], [place] [phone] Martina Gordon MD [address] [place], [place] [phone] documented as of this encounter Procedures Procedure Name Priority Date/Time Associated Diagnosis Comments HEPATIC FUNCTION PANEL Routine 09/18/2025 3:22 PM EST documented in this encounter Results * Hepatic Function Panel (09/18/2025 3:22 PM EST) Bilirubin, Total 0.3 0.0 - 1.0 mg/dL [facility] Bilirubin, Direct 0.2 0.0 - 0.5 mg/dL [facility] Aspartate Amino Transferase 22 5 - 31 U/L [facility] Alanine Aminotransferase 17 0 - 31 U/L [facility] Total Protein 7.0 6.5 - 8.0 g/dL [facility] Albumin Level 4.4 3.5 - 5.0 g/dL [facility] Alkaline Phosphatase 114 39 - 117 U/L [facility] 09/18/2025 3:22 PM EST 09/18/2025 5:35 PM EST Guadalupe Ruiz MD LAB BLOOD ORDERABLES Final R esult [facility] [address] [place] [phone] documented in this encounter Visit Diagnoses Not on filedocumented in this encounter Additional Health Concerns Assessment Noted Time PHQ-9 Depression Total Score: 3 11/16/19 25 8:47 AM EST documented as of this encounter Care Teams Clothing Sorter Relationship Specialty Start Date End Date Martina Gordon MD [address] [place] [phone] PCP - General Family Medicine 09/20/18 documented as of this encounter
--- OUTSIDE RECORDS SUMMARY | 2025-09-18 18:46 | XMS_ITS | Patient Health Record ---
Author Organization [facility] Address [address] [place] [phone] Care Team Providers Care Sales Clerk Name Role Phone Evan MAYNARD, Martina Primary Care Provider Girma Grissom Unavailable [phone] Allergies Allergen (clinical drug ingredient) Drug/Non Drug [...] Problem Screening for malignant neoplasm of colon (872026792) Encounter for screening for malignant neoplasm of colon (Z12.11) Active confirmed Problem Constipation (45432860) Constipation, unspecified constipation type (K59.00) Active confirmed Plan Of Treatment Future Test Test Name Order Date COLONOSCOPY 06/10/2018 Insurance Providers Payer Name Payer Address Payer Phone Subscriber Number Group Number Insured Name Patient Relationship to Insured Coverage Start Date Coverage End Date MEDICA[employer] OF [employer] [address] [place] [phone] [id number] JADA FREIRE Self - patient is the insured Medical (General) History Medical History History ICD Code COPD Denies SD,DM,CVA,renal disease Depression Arthritis in hands Surgical History Surgery Date(Month/Year) tonsillectomy and adenoidectomy 1966 tubes in ears 1979
== END 2025-09-18 15:22 ==
LOC: HO.CHCLDS 15:21
PROVIDERS: Visit Provider Family Medicine
DX: B18.2 Chronic viral hepatitis C (principal); Z11.59 Encounter for screening for other viral diseases
CPT/HCPCS: 36415; 80076; 81596; 86708; 87902